=== PATIENT | male | born 1945 | race Caucasian/White ===

== ENCOUNTER 2022-01-07 14:27 | Inpatient (IN) | payer MEDICARE, OTHER, SELFPAY ==
[2022-01-07] VITALS (9 sets, daily range): BP systolic 102–121; BP diastolic 61–75; PULSE 84–95; RESP 14–22; TEMP 37–37.6; O2SAT 93–100; BMI 29.9
--- NOTE | 2022-01-07 14:40 | DI.RAD.S_ITS ---
PROCEDURE: XR CHEST 1V INDICATIONS: chest pain TECHNIQUE: One view of the chest was acquired. COMPARISON: None. FINDINGS: Surgical changes and devices: None. Lungs and pleura: Slight appearance of bibasilar coarsening. Mediastinum: Mediastinal contours appear normal. Heart size is normal. Bones and chest wall: No suspicious bony lesions. Overlying soft tissues appear unremarkable. IMPRESSION: Bibasilar coarsening which may represent atelectasis versus developing airspace disease such as pneumonia. Dictated by: Sarah Quintero M.D. on 01/07/2022 at 15:47 Approved by: Sarah Quintero M.D. on 01/07/2022 at 15:48
--- NOTE | 2022-01-07 15:01 | ED.SYNCOPE ---
HPI - Syncope General Chief Complaint: Syncope Stated Complaint: Fainted- [facility] thinks gallbladder- needs US Time Seen by Provider: 01/07/22 14:44 Source: patient Mode of arrival: Ambulatory History of Present Illness HPI narrative: The patient had syncope about 830 this morning. Was having extreme right upper quadrant abdominal pain. He felt dizzy and apparently passed out. He fell to his right side, there is no head or neck injury. He has passed out before. He was not having chest pain or palpitations. He is diabetic, his glucose is not monitored. He has experienced persistent right upper quadrant abdominal pain for about 4 days now. He has no postprandial pain changes. However, his appetite is poor. He is not vomiting. He has no nausea vomiting. He does not have jaundice. He has a prior history of shoulder surgery, no GI or surgeries. He has no chronic GI issues. His no chest pain, palpitations or dyspnea. He has no focal weakness or numbness. Related Data Previous Rx's Medication Instructions Recorded prednisone 10 mg tablet 10 mg PO SEE INSTRUCTIONS #50 tab 05/05/16 rosuvastatin 20 mg tablet (Crestor) 20 mg PO QDAY #30 tab 05/05/16 cephalexin 500 mg capsule 500 mg PO TID #30 cap NS 01/06/21 Allergies Allergy/AdvReac Type Severity Reaction Status Date / Time egg [EGG] Allergy Intermediate anaphylactic Verified 01/07/22 16:57 shock Review of Systems Constitutional Constitutional: Denies anorexia, Denies body ache(s), Denies chills and Denies fever(s) Eyes Eyes: Denies change in vision and Denies loss of vision ENT Ears, Nose, Mouth, and Throat: Denies vertigo, Denies dizziness, Denies nasal discharge, Denies sinus pain, Denies sinus pressure and Denies sore throat Cardiovascular Cardiovascular: Denies chest pain, Reports syncope, Denies rapid heart rate, Denies pedal edema, Denies leg edema and Denies dyspnea Respiratory Respiratory: Denies cough and Denies dyspnea Gastrointestinal Gastrointestinal: Reports as per HPI, Reports abdominal pain, Reports constipation, Reports early satiety and Reports nausea Genitourinary Genitourinary: Denies dysuria and Denies urinary frequency Musculoskeletal Musculoskeletal: Denies back pain and Denies limited range of motion Integumentary/Breasts Skin/Breast: Denies rash and Denies skin swelling Neurologic Neurologic: Denies confusion, Denies vertigo, Denies dizziness, Reports syncope, Denies loss of vision and Denies memory loss Psychiatric Psychiatric: Denies confusion and Denies memory loss Hematologic/Lymphatic On Anticoagulants: No Patient History Medical History Chronic a-fib Diabetes History of asthma Hyperlipidemia Right inguinal hernia Exam Initial Vital Signs Initial Vital Signs: Vital Signs Temperature 99.1 F 01/07/22 14:37 Pulse Rate 90 01/07/22 14:37 Respiratory Rate 22 01/07/22 14:37 Blood Pressure 121/75 01/07/22 14:37 Pulse Oximetry 100 01/07/22 14:37 Const General: cooperative, healthy appearing and comfortable HENRI Head: normocephalic and atraumatic Mouth: oral mucosae normal and oropharynx normal Throat: posterior oropharynx normal Eyes General: Yes appearance normal, both eyes and all related structures Cornea: corneas normal Pupils: PERRL and pupil size Neck Neck: normal visual inspection and No lymphadenopathy Chest Chest: normal inspection of the chest Resp Effort & Inspection: normal respiratory effort Cardio Rhythm: other (Irregular, irregular rhythm. He is in AFib.) GI Inspection: normal to inspection Other: RUQ tenderness with guarding. No distension. No masses. Normal bowel sounds. Back/Spine/Pelvis Back: normal to inspection and No CVA tenderness Skin General: no rashes or lesions noted Neuro General: patient alert, patient awake, patient oriented x3 and no focal motor deficits Cranial Nerves: CN's II-XI intact bilaterally Speech: speech normal Motor: muscle tone normal throughout Extrem General: normal to inspection, full ROM, no pedal edema and no calf tenderness Psych Appearance: grossly normal Course Course Course Narrative: Patient has subtle elevations LFTs, and an elevated white count. Gallbladder ultrasound is consistent with cholecystitis. Cardiac monitoring and cardiac evaluation done due to syncope episode. He likely is vasovagal syncope associated with his pain. Of note he is anticoagulated for chronic AFib. INR is 3.5. He has hypokalemia, 20 mEq of IV potassium ordered. His case is discussed with the on-call surgeon, Dr. Hebert. I have started him on Zosyn. He will be admitted. Orders Ordered: ED Orders 01/07/22 14:40 XR chest 1V Stat EKG-12 Lead Stat 01/07/22 15:00 Complete Blood Count AUTO DIFF Stat Comprehensive Metabolic Panel Stat Lipase Stat Magnesium Stat Prothrombin Time INR Stat Troponin & CK Cardiac Panel Stat 01/07/22 15:15 US abdomen limited Stat 01/07/22 17:47 COVID19 -Nasal RAPID/Pre-Proc Stat Discontinued Medications POTASSIUM CHLORIDE IN WATER (Potassium Cl 10 Meq/100 Ml Ge[place]) 10 meq in 100 mls @ 100 mls/hr IV Q1H FARIBA Stop: 01/07/22 18:14 Last Infusion: 01/07/22 17:36 Dose: 0 mls/hr Documented by: Admin: 01/07/22 17:29 Dose: 75 mls/hr Documented by: Infusion: 01/07/22 17:29 Dose: 75 mls/hr Documented by: Infusion: 01/07/22 17:11 Dose: 75 mls/hr Documented by: Admin: 01/07/22 16:19 Dose: 100 mls/hr Documented by: CHACHA Piperacillin Sod/Tazobactam (Sod 4.5 gm/ Sodium Chloride) 100 mls @ 200 mls/hr IV NOW ONE Stop: 01/07/22 17:22 Last Infusion: 01/07/22 18:15 Dose: 0 mls/hr Documented by: Admin: 01/07/22 17:35 Dose: 200 mls/hr Documented by: CHACHA Vital Signs Vital signs: Vital Signs - 8 hr 01/07/22 14:37 01/07/22 15:11 01/07/22 15:30 Temperature 99.1 F Pulse Rate 90 91 H 89 Respiratory Rate 22 22 14 Blood Pressure 121/75 107/61 Pulse Oximetry 100 95 96 01/07/22 16:00 01/07/22 16:30 01/07/22 17:00 Temperature Pulse Rate 88 87 89 Respiratory Rate 18 20 19 Blood Pressure 109/62 114/65 112/61 Pulse Oximetry 95 94 93 01/07/22 17:30 Temperature 99.1 F Pulse Rate 84 Respiratory Rate 19 Blood Pressure 109/65 Pulse Oximetry 95 MDM - Syncope Lab Data Result diagrams: 01/07/22 15:00 01/07/22 15:00 Labs: Lab Results 01/07/22 01/07/22 01/07/22 Range/Units 15:00 15:00 15:00 WBC 16.1 H (4.5-11.0) X10^3/uL RBC 4.85 (4.5-5.9) X10^6/uL Hgb 14.6 (13.5-17.5) g/dL Hct 41.9 (41-53) % MCV 86.5 (80-100) fL MCH 30.2 (26-34) PG MCHC 34.9 (30-36) % RDW 14.3 (11.6-14.8) % Plt Count 240 (150-400) X10^3/uL Neut % (Auto) 81.9 H (50-75) % Lymph % (Auto) 7.2 L (25-40) % [place] % (Auto) 10.5 (3-14) % Eos % (Auto) 0.1 L (2-4) % Baso % (Auto) 0.3 (0-2) % Neut # (Auto) 46663 H (5838-3976) /uL Lymph # (Auto) 1200 (6729-6129) /uL [place] # (Auto) 1700 H (0-900) /uL Eos # (Auto) 0 (0-450) /uL Baso # (Auto) 100 (0-100) /uL PT 40.5 H (10.1-12.7) SECONDS INR 3.5 H (0.9-1.3) Sodium 132 L (137-145) mmol/L Potassium 2.9 L (3.4-5.1) mmol/L Chloride 87 L (98-107) mmol/L Carbon Dioxide 36 H (22-32) mmol/L BUN 21 H (9-20) mg/dL Creatinine 1.35 H (0.66-1.25) mg/dL Estimated GFR 54 L (>60) mL/min BUN/Creatinine Ratio 15.6 (6-22) Glucose 135 H (80-110) mg/dL Calcium 10.1 (8.4-10.2) mg/dL Magnesium 1.9 (1.6-2.3) mg/dL Total Bilirubin 1.2 (0.2-1.3) mg/dL AST 69 H (17-59) IU/L ALT 62 H (<50) IU/L Alkaline Phosphatase 104 (38-126) U/L Total Creatine Kinase 218 H (55-170) U/L CK-MB (CK-2) 1.84 (<2.37) ng/mL CK-MB (CK-2) Rel Index 0.8 L (1.5-5.0) % Troponin I < 0.012 (0.01-0.034) ng/mL Total Protein 8.2 (6.3-8.2) g/dL Albumin 4.4 (3.5-5.0) g/dL Globulin 3.8 (1.7-4.1) g/dL Albumin/Globulin Ratio 1.2 (1.0-2.8) Lipase 174 (23-300) U/L Imaging Data Chest x-ray: Radiologist's Impression: PROCEDURE:? XR CHEST 1V ? INDICATIONS:? chest pain ? TECHNIQUE:? One view of the chest was acquired.? ? COMPARISON:? None. ? FINDINGS:? ? Surgical changes and devices:? None.? ? Lungs and pleura:? Slight appearance of bibasilar coarsening. ? Mediastinum:? Mediastinal contours appear normal.? Heart size is normal.? ? Bones and chest wall:? No suspicious bony lesions.? Overlying soft tissues appear unremarkable.? ? IMPRESSION:? Bibasilar coarsening which may represent atelectasis versus developing airspace disease such as pneumonia. US - abdomen: Radiologist's Impression: PROCEDURE:? US ABDOMEN LIMITED ? INDICATIONS:? RUQ PAIN ? TECHNIQUE:? Real-time scanning was performed of the abdominal and retroperitoneal organs, with image documentation.? Color and pulse Doppler interrogation was also performed of the hepatic and splenic vessels, or of the lesion of interest.? ? COMPARISON:? None. ? FINDINGS:? ? Liver:? Liver is mildly enlarged and demonstrates diffuse increased hepatic echotexture.? There is hypoechoic area adjacent to the gallbladder fossa measuring 5.6 x 6.2 x 2.0 cm, most likely secondary to focal fat sparing.? Doppler:? Portal vein is patent and demonstrates hepatopetal flow. Gallbladder:? There are gallstones.? Gallbladder wall is thickened measuring 15 mm.? There is pericholecystic fluid.? There is positive sonographic Aponte sign The ultrasound findings are compatible with acute cholecystitis.? Biliary ducts:? No intrahepatic biliary ductal dilatation.? Extrahepatic bile duct is 5.2 mm in caliber.? Normal biliary caliber is 6-7 mm or less, or 10 mm or less post-cholecystectomy.? Pancreas:? Suboptimally visualized. ? IMPRESSION:? ? 1. Cholelithiasis.? There is gallbladder wall thickening, pericholecystic fluid collection and sonographic Aponte sign, compatible with acute cholecystitis. ? 2.? Diffusely increased hepatic echotexture. This finding is most likely secondary to hepatic fatty infiltration although other hepatocellular disease may have a similar appearance. Recommend clinical correlation. ? 3. Hypoechoic area in the gallbladder fossa is most likely secondary to focal fat sparing. ? 4. Pancreas is suboptimally visualized. ? 5. Normal caliber of common bile duct.? ? ECG Data Attestation: I personally reviewed and interpreted this ECG as follows: (Atrial fib rate 87 beats per minute. QT 380, QTC 457. No acute ST T wave changes.) Critical Care Time Critical Care Time Critical Care Time: Yes Total Critical Care Time: 40 Attestation: Time includes evaluation of patient, review of medical record, review of EKG, lab in radiology data. Clinical situation was discussed with the patient, the admitting surgeon was contacted. Discharge Plan Departure Patient Disposition: Admitted as Observation Clinical Impression: Acute cholecystitis, Chronic a-fib, Hypokalemia, Renal insufficiency Admit Date/Time: 01/07/22 18:13 Admit Provider: Adolph Hebert
[2022-01-07 15:08] LABS: Add Manual Diff / Slide Review NO; Basophils Absolute Auto 100 /uL (0-100); Basophils Percent Auto 0.3 % (0-2); Eosinophils Absolute Auto 0 /uL (0-450); Eosinophils Percent Auto 0.1 % (2-4); Hematocrit 41.9 % (41-53); Hemoglobin 14.6 g/dL (13.5-17.5); Lymphocytes Absolute Auto 1200 /uL (1100-4500); Lymphocytes Percent Auto 7.2 % (25-40); Mean Corpuscular HGB Conc 34.9 % (30-36); Mean Corpuscular Hemoglobin 30.2 PG (26-34); Mean Corpuscular Volume 86.5 fL (80-100); Monocytes Absolute Auto 1700 /uL (0-900); Monocytes Percent Auto 10.5 % (3-14); Neutrophils Absolute Auto 13200 /uL (1500-7000); Neutrophils Percent Auto 81.9 % (50-75); Platelet Count 240 X10^3/uL (150-400); Red Blood Cell Count 4.85 X10^6/uL (4.5-5.9); Red Cell Distribution Width 14.3 % (11.6-14.8); White Blood Cell Count 16.1 X10^3/uL (4.5-11.0)
[2022-01-07 15:15] LABS: INR 3.5 (0.9-1.3); Prothrombin Time 40.5 SECONDS (10.1-12.7)
--- NOTE | 2022-01-07 15:15 | DI.US.S_ITS ---
PROCEDURE: US ABDOMEN LIMITED INDICATIONS: RUQ PAIN TECHNIQUE: Real-time scanning was performed of the abdominal and retroperitoneal organs, with image documentation. Color and pulse Doppler interrogation was also performed of the hepatic and splenic vessels, or of the lesion of interest. COMPARISON: None. FINDINGS: Liver: Liver is mildly enlarged and demonstrates diffuse increased hepatic echotexture. There is hypoechoic area adjacent to the gallbladder fossa measuring 5.6 x 6.2 x 2.0 cm, most likely secondary to focal fat sparing. Doppler: Portal vein is patent and demonstrates hepatopetal flow. Gallbladder: There are gallstones. Gallbladder wall is thickened measuring 15 mm. There is pericholecystic fluid. There is positive sonographic Aponte sign The ultrasound findings are compatible with acute cholecystitis. Biliary ducts: No intrahepatic biliary ductal dilatation. Extrahepatic bile duct is 5.2 mm in caliber. Normal biliary caliber is 6-7 mm or less, or 10 mm or less post-cholecystectomy. Pancreas: Suboptimally visualized. IMPRESSION: 1. Cholelithiasis. There is gallbladder wall thickening, pericholecystic fluid collection and sonographic Aponte sign, compatible with acute cholecystitis. 2. Diffusely increased hepatic echotexture. This finding is most likely secondary to hepatic fatty infiltration although other hepatocellular disease may have a similar appearance. Recommend clinical correlation. 3. Hypoechoic area in the gallbladder fossa is most likely secondary to focal fat sparing. 4. Pancreas is suboptimally visualized. 5. Normal caliber of common bile duct. Dictated by: Ginger Charles M.D. on 01/07/2022 at 16:47 Approved by: Ginger Charles M.D. on 01/07/2022 at 16:51
[2022-01-07 15:20] LABS: Alanine Aminotransferase 62 IU/L (<50); Albumin 4.4 g/dL (3.5-5.0); Albumin Globulin Ratio 1.2 (1.0-2.8); Alkaline Phosphatase 104 U/L (38-126); Aspartate Aminotransferase 69 IU/L (17-59); BUN Creatinine Ratio 15.6 (6-22); Bilirubin Total 1.2 mg/dL (0.2-1.3); Blood Urea Nitrogen 21 mg/dL (9-20); Calcium 10.1 mg/dL (8.4-10.2); Carbon Dioxide 36 mmol/L (22-32); Chloride 87 mmol/L (98-107); Creatine Kinase 218 U/L (55-170); Estimated Glomerular Filt Rate 54 mL/min (>60); Globulin 3.8 g/dL (1.7-4.1); Glucose 135 mg/dL (80-110); HEMOLYSIS < 15 (0-50); Lipase 174 U/L (23-300); Magnesium 1.9 mg/dL (1.6-2.3); Potassium 2.9 mmol/L (3.4-5.1); Sodium 132 mmol/L (137-145); Total Protein 8.2 g/dL (6.3-8.2)
[2022-01-07 15:31] LABS: Troponin I < 0.012 ng/mL (0.01-0.034)
[2022-01-07 15:35] LABS: CKMB % Relative Index 0.8 % (1.5-5.0); Creatine Kinase MB 1.84 ng/mL (<2.37)
[2022-01-07] MEDS: POTASSIUM CHLORIDE IN WATER 10 MEQ/100 ML PIGGYBACK 100 MEQ IV (16:19)
[2022-01-07] MEDS: POTASSIUM CHLORIDE IN WATER 10 MEQ/100 ML PIGGYBACK 75 MEQ IV (17:29)
[2022-01-07] MEDS: PIPERACILLIN/TAZO 4.5 GM in SODIUM CHLORIDE 0.9% 100 ML IV (17:35)
[2022-01-07 18:38] LABS: COVID19 -Nasal RAPID Negative (Negative)
--- NOTE | 2022-01-07 18:53 | PM.CN ---
History of Present Illness Consult details Date Patient Seen: 01/07/22 Time Patient Seen: 18:53 Chief complaint: Fainted- [facility] thinks gallbladder- needs US Narrative: The patient is a 76-year-old man with atrial fibrillation on Coumadin who presented for about 3 days of abdominal pain and syncope today and upon further workup was found to have gallstones and acute cholecystitis. He has never had abdominal pain before. He denies prior abdominal surgery and he denied prior medical problems however upon further investigation he is found to have several medical problems. Meds Home Medications and Allergies Home Medications Medication Instructions Recorded Confirmed Type prednisone 10 mg tablet 10 mg PO SEE INSTRUCTIONS #50 tab 05/05/16 Rx rosuvastatin 20 mg tablet (Crestor) 20 mg PO QDAY #30 tab 05/05/16 Rx cephalexin 500 mg capsule 500 mg PO TID #30 cap NS 01/06/21 01/06/21 Rx Allergies Allergy/AdvReac Type Severity Reaction Status Date / Time egg [EGG] Allergy Intermediate anaphylactic Verified 01/07/22 16:57 shock Exam Vital Signs (past 8 hours): - 01/07/22 14:37 01/07/22 15:11 01/07/22 15:30 Temperature 99.1 F Pulse Rate 90 91 H 89 Respiratory Rate 22 22 14 Blood Pressure 121/75 107/61 Pulse Oximetry 100 95 96 01/07/22 16:00 01/07/22 16:30 01/07/22 17:00 Temperature Pulse Rate 88 87 89 Respiratory Rate 18 20 19 Blood Pressure 109/62 114/65 112/61 Pulse Oximetry 95 94 93 01/07/22 17:30 Temperature 99.1 F Pulse Rate 84 Respiratory Rate 19 Blood Pressure 109/65 Pulse Oximetry 95 Oxygen Delivery Method Room Air Const General: No acute distress Resp Effort & Inspection: normal respiratory effort GI Other: Guarding in the right upper quadrant Objective Labs Result Diagrams: 01/07/22 15:00 01/07/22 15:00 Labs: Laboratory Results - last 24 hr 01/07/22 01/07/22 01/07/22 15:00 15:00 15:00 WBC 16.1 H RBC 4.85 Hgb 14.6 Hct 41.9 MCV 86.5 MCH 30.2 MCHC 34.9 RDW 14.3 Plt Count 240 Neut % (Auto) 81.9 H Lymph % (Auto) 7.2 L [place] % (Auto) 10.5 Eos % (Auto) 0.1 L Baso % (Auto) 0.3 Neut # (Auto) 64709 H Lymph # (Auto) 1200 [place] # (Auto) 1700 H Eos # (Auto) 0 Baso # (Auto) 100 PT 40.5 H INR 3.5 H Sodium 132 L Potassium 2.9 L Chloride 87 L Carbon Dioxide 36 H BUN 21 H Creatinine 1.35 H Estimated GFR 54 L BUN/Creatinine Ratio 15.6 Glucose 135 H Calcium 10.1 Magnesium 1.9 Total Bilirubin 1.2 AST 69 H ALT 62 H Alkaline Phosphatase 104 Total Creatine Kinase 218 H CK-MB (CK-2) 1.84 CK-MB (CK-2) Rel Index 0.8 L Troponin I < 0.012 Total Protein 8.2 Albumin 4.4 Globulin 3.8 Albumin/Globulin Ratio 1.2 Lipase 174 SARS-CoV-2 (PCR) 01/07/22 17:47 WBC RBC Hgb Hct MCV MCH MCHC RDW Plt Count Neut % (Auto) Lymph % (Auto) [place] % (Auto) Eos % (Auto) Baso % (Auto) Neut # (Auto) Lymph # (Auto) [place] # (Auto) Eos # (Auto) Baso # (Auto) PT INR Sodium Potassium Chloride Carbon Dioxide BUN Creatinine Estimated GFR BUN/Creatinine Ratio Glucose Calcium Magnesium Total Bilirubin AST ALT Alkaline Phosphatase Total Creatine Kinase CK-MB (CK-2) CK-MB (CK-2) Rel Index Troponin I Total Protein Albumin Globulin Albumin/Globulin Ratio Lipase SARS-CoV-2 (PCR) Negative [facility] Medical History Chronic a-fib Diabetes History of asthma Hyperlipidemia Right inguinal hernia Social History household members: spouse Tobacco & Substance Use Smoking Status: Never smoker alcohol intake: current Assessment & Plan Assessment and plan (1) Acute cholecystitis: Status: Acute Plan Recommend admission to the hospital service for management of medical problems. His anticoagulation will need to be reversed prior to surgery. Once his INR is close to normal we can proceed with a laparoscopic cholecystectomy with an intraoperative cholangiogram. Informed him that there is a small chance we could require converting to an open cholecystectomy. We reviewed the risks of surgery. Expect him to be in the hospital for at least 3 days and possibly longer. Time Spent With Patient Critical Care time: I spent a total of [] minutes of critical care time on this patient's care today; this time is exclusive of procedural time.
[2022-01-07 19:45] LABS: INR 3.7 (0.9-1.3); Prothrombin Time 42.9 SECONDS (10.1-12.7)
[2022-01-07] MEDS: PHYTONADIONE (VIT K1) 5 MG TABLET 10 MG PO (19:59)
[2022-01-07] MEDS: HYDROMORPHONE 0.5 MG INJ IV (19:59)
[2022-01-07] MEDS: LACTATED RINGERS 1,000 ML 100 ML IV (20:00)
--- NOTE | 2022-01-07 21:21 | P.HP_ITS ---
History of Present Illness History of Present Illness Date Patient Seen: 01/07/22 Time Patient Seen: 21:21 Chief complaint: Fainted- [facility] thinks gallbladder- needs US Patient History Medical History Chronic a-fib Diabetes History of asthma Hyperlipidemia Right inguinal hernia Family & Social History Social History: household members spouse Prior Living Arrangements House Safety & Behavioral: Feels Safe in Current Yes Environment Been Physically Hurt or No Threatened By a Person Tobacco & Substance use: Smoking Status Never smoker alcohol intake current alcohol intake frequency 0-2 drinks per day Substance Use Type does not use Meds Home Medications and Allergies Home Medications Medication Instructions Recorded Confirmed Type allopurinol 300 mg tablet 300 mg PO DAILY 01/07/22 01/07/22 History atenolol 100 mg-chlorthalidone 25 1 tab PO DAILY 01/07/22 01/07/22 History mg tablet fluticasone 100 mcg-salmeterol 50 1 inh INHALATION PRN PRN 01/07/22 01/07/22 History mcg/dose blistr powdr for inhalation metformin 500 mg tablet,extended 1,000 mg PO DAILY 01/07/22 01/07/22 History release 24 hr rosuvastatin 40 mg tablet 40 mg PO DAILY 01/07/22 01/07/22 History semaglutide (Ozempic) 0.5 mg SUBCUT WEEKLY 01/07/22 01/07/22 History venlafaxine 75 mg capsule,extended 75 mg PO DAILY 01/07/22 01/07/22 History release 24 hr warfarin 5 mg tablet 7.5 mg PO 3XW 01/07/22 01/07/22 History warfarin 5 mg tablet 10 mg PO 4XW 01/07/22 01/07/22 History Allergies Allergy/AdvReac Type Severity Reaction Status Date / Time egg [EGG] Allergy Intermediate anaphylactic Verified 01/07/22 16:57 shock Exam Vital Signs (past 8 hours): - 01/07/22 14:37 01/07/22 15:11 01/07/22 15:30 Temperature 99.1 F Pulse Rate 90 91 H 89 Respiratory Rate 22 22 14 Blood Pressure 121/75 107/61 Pulse Oximetry 100 95 96 01/07/22 16:00 01/07/22 16:30 01/07/22 17:00 Temperature Pulse Rate 88 87 89 Respiratory Rate 18 20 19 Blood Pressure 109/62 114/65 112/61 Pulse Oximetry 95 94 93 01/07/22 17:30 01/07/22 18:25 Temperature 99.1 F 99.7 F H Pulse Rate 84 92 H Respiratory Rate 19 17 Blood Pressure 109/65 112/74 Pulse Oximetry 95 95 Oxygen Delivery Method Room Air Oxygen Flow Rate 0 Objective Labs Result Diagrams: 01/07/22 15:00 01/07/22 15:00 Labs: Laboratory Results - last 24 hr 01/07/22 01/07/22 01/07/22 15:00 15:00 15:00 WBC 16.1 H RBC 4.85 Hgb 14.6 Hct 41.9 MCV 86.5 MCH 30.2 MCHC 34.9 RDW 14.3 Plt Count 240 Neut % (Auto) 81.9 H Lymph % (Auto) 7.2 L [place] % (Auto) 10.5 Eos % (Auto) 0.1 L Baso % (Auto) 0.3 Neut # (Auto) 54348 H Lymph # (Auto) 1200 [place] # (Auto) 1700 H Eos # (Auto) 0 Baso # (Auto) 100 PT 40.5 H INR 3.5 H Sodium 132 L Potassium 2.9 L Chloride 87 L Carbon Dioxide 36 H BUN 21 H Creatinine 1.35 H Estimated GFR 54 L BUN/Creatinine Ratio 15.6 Glucose 135 H Calcium 10.1 Magnesium 1.9 Total Bilirubin 1.2 AST 69 H ALT 62 H Alkaline Phosphatase 104 Total Creatine Kinase 218 H CK-MB (CK-2) 1.84 CK-MB (CK-2) Rel Index 0.8 L Troponin I < 0.012 Total Protein 8.2 Albumin 4.4 Globulin 3.8 Albumin/Globulin Ratio 1.2 Lipase 174 SARS-CoV-2 (PCR) 01/07/22 01/07/22 17:47 19:05 WBC RBC Hgb Hct MCV MCH MCHC RDW Plt Count Neut % (Auto) Lymph % (Auto) [place] % (Auto) Eos % (Auto) Baso % (Auto) Neut # (Auto) Lymph # (Auto) [place] # (Auto) Eos # (Auto) Baso # (Auto) PT 42.9 H INR 3.7 H Sodium Potassium Chloride Carbon Dioxide BUN Creatinine Estimated GFR BUN/Creatinine Ratio Glucose Calcium Magnesium Total Bilirubin AST ALT Alkaline Phosphatase Total Creatine Kinase CK-MB (CK-2) CK-MB (CK-2) Rel Index Troponin I Total Protein Albumin Globulin Albumin/Globulin Ratio Lipase SARS-CoV-2 (PCR) Negative Assessment & Plan Time Spent With Patient Critical Care time: I spent a total of [] minutes of critical care time on this patient's care today; this time is exclusive of procedural time. Quality VTE Deep Vein Thrombosis/Pulmonary Embolism Present on Admission: No
[2022-01-07] MEDS: ATORVASTATIN 20 MG TABLET 80 MG PO (21:38)
[2022-01-07 22:04] LABS: INR 3.7 (0.9-1.3); Prothrombin Time 43.9 SECONDS (10.1-12.7)
--- NOTE | 2022-01-07 22:26 | P.CONS_ITS ---
History of Present Illness Consult details Date Patient Seen: 01/07/22 Time Patient Seen: 21:21 Chief complaint: Fainted- [facility] thinks gallbladder- needs US Reason for consult: Anticoagulant reversal and diabetes presurgical lap stephany Requesting provider: Adolph Hebert Narrative: Chalino Zavala is a 76-year-old male with hypertension and a recent diagnosis of diabetes type 2 and who lives on [facility] was in his his usual state of health when this past Wednesday he developed abdominal pain, nausea, fever and chills. His standing at the bedside stated the ship for about 1 hour took his temperature and it was 100.8. When he tried to get out of bed he ?passed out. He [place] a [place] him and said that he needed to be seen in the emergency department in [place]. Denies dysuria, diarrhea or constipation. Patient was seen by General surgery and it was decided that he would undergo laparoscopic cholecystectomy after seeing cholelithiasis on imaging. After surgery had admitted the patient was discovered that the patient was taking warfarin, his INR was supratherapeutic at 3.7 and that he would have to have his anticoagulation reversed. Patient is mildly febrile at 99.7 blood pressure 112/74, heart rate 92, respiratory rate 17, oxygen saturation 95% on room air he weighs 97.6 kg with a BMI of 29.9. He does have an elevated white count of 16.1, left shift of 13,000, INR is 3.7, sodium 132, potassium 2.9 chloride 87 bicarb 36 BUN 21 creatinine 1.35 with a EGFR 54 and a glucose of 135, A1c is pending, AST is elevated at 69 ALT 62 lipase was 174 within normal limits and COVID-19 PCR is negative. Meds Home Medications and Allergies Home Medications Medication Instructions Recorded Confirmed Type allopurinol 300 mg tablet 300 mg PO DAILY 01/07/22 01/07/22 History atenolol 100 mg-chlorthalidone 25 1 tab PO DAILY 01/07/22 01/07/22 History mg tablet fluticasone 100 mcg-salmeterol 50 1 inh INHALATION PRN PRN 01/07/22 01/07/22 History mcg/dose blistr powdr for inhalation metformin 500 mg tablet,extended 1,000 mg PO DAILY 01/07/22 01/07/22 History release 24 hr rosuvastatin 40 mg tablet 40 mg PO DAILY 01/07/22 01/07/22 History semaglutide (Ozempic) 0.5 mg SUBCUT WEEKLY 01/07/22 01/07/22 History venlafaxine 75 mg capsule,extended 75 mg PO DAILY 01/07/22 01/07/22 History release 24 hr warfarin 5 mg tablet 7.5 mg PO 3XW 01/07/22 01/07/22 History warfarin 5 mg tablet 10 mg PO 4XW 01/07/22 01/07/22 History Allergies Allergy/AdvReac Type Severity Reaction Status Date / Time egg [EGG] Allergy Intermediate anaphylactic Verified 01/07/22 16:57 shock Review of Systems Review of Systems ROS: Yes All systems reviewed with the patient and are negative except as otherwise documented Exam Vital Signs (past 8 hours): - 01/07/22 14:37 01/07/22 15:11 01/07/22 15:30 Temperature 99.1 F Pulse Rate 90 91 H 89 Respiratory Rate 22 22 14 Blood Pressure 121/75 107/61 Pulse Oximetry 100 95 96 01/07/22 16:00 01/07/22 16:30 01/07/22 17:00 Temperature Pulse Rate 88 87 89 Respiratory Rate 18 20 19 Blood Pressure 109/62 114/65 112/61 Pulse Oximetry 95 94 93 01/07/22 17:30 01/07/22 18:25 Temperature 99.1 F 99.7 F H Pulse Rate 84 92 H Respiratory Rate 19 17 Blood Pressure 109/65 112/74 Pulse Oximetry 95 95 Oxygen Delivery Method Room Air Oxygen Flow Rate 0 Narrative Exam Narrative: Gen: Alert, oriented, well-developed 76 y.o. male, NAD HEENT: normocephalic, atraumatic, conjunctiva clear, sclera non-icteric, oral mucosa pink and moist Neck: supple, full ROM, no JVD, trachea is midline Resp: Lungs CTA, non-labored breathing CV: RRR, no murmur or rubs Abd: soft, non-tender, normoactive BTs Skin: no lesions or rashes, dry and intact Neuro: Alert and oriented X 4 w/no focal deficits. Speech clear and coherent. Extremities: moves all 4 extremities, is ambulatory, negative Sandy?s sign Psyche: normal mood and affect. Objective Labs Result Diagrams: 01/07/22 15:00 01/07/22 15:00 Labs: Laboratory Results - last 24 hr 01/07/22 01/07/22 01/07/22 15:00 15:00 15:00 WBC 16.1 H RBC 4.85 Hgb 14.6 Hct 41.9 MCV 86.5 MCH 30.2 MCHC 34.9 RDW 14.3 Plt Count 240 Neut % (Auto) 81.9 H Lymph % (Auto) 7.2 L [place] % (Auto) 10.5 Eos % (Auto) 0.1 L Baso % (Auto) 0.3 Neut # (Auto) 81609 H Lymph # (Auto) 1200 [place] # (Auto) 1700 H Eos # (Auto) 0 Baso # (Auto) 100 PT 40.5 H INR 3.5 H Sodium 132 L Potassium 2.9 L Chloride 87 L Carbon Dioxide 36 H BUN 21 H Creatinine 1.35 H Estimated GFR 54 L BUN/Creatinine Ratio 15.6 Glucose 135 H Calcium 10.1 Magnesium 1.9 Total Bilirubin 1.2 AST 69 H ALT 62 H Alkaline Phosphatase 104 Total Creatine Kinase 218 H CK-MB (CK-2) 1.84 CK-MB (CK-2) Rel Index 0.8 L Troponin I < 0.012 Total Protein 8.2 Albumin 4.4 Globulin 3.8 Albumin/Globulin Ratio 1.2 Lipase 174 SARS-CoV-2 (PCR) 01/07/22 01/07/22 01/07/22 17:47 19:05 21:50 WBC RBC Hgb Hct MCV MCH MCHC RDW Plt Count Neut % (Auto) Lymph % (Auto) [place] % (Auto) Eos % (Auto) Baso % (Auto) Neut # (Auto) Lymph # (Auto) [place] # (Auto) Eos # (Auto) Baso # (Auto) PT 42.9 H 43.9 H INR 3.7 H 3.7 H Sodium Potassium Chloride Carbon Dioxide BUN Creatinine Estimated GFR BUN/Creatinine Ratio Glucose Calcium Magnesium Total Bilirubin AST ALT Alkaline Phosphatase Total Creatine Kinase CK-MB (CK-2) CK-MB (CK-2) Rel Index Troponin I Total Protein Albumin Globulin Albumin/Globulin Ratio Lipase SARS-CoV-2 (PCR) Negative [facility] Medical History Chronic a-fib Diabetes History of asthma Hyperlipidemia Right inguinal hernia Family History Mother CVA (cerebral vascular accident) Opioid dependence Father Family history of CABG Bipolar depression Social History household members: spouse Tobacco & Substance Use Smoking Status: Never smoker alcohol intake: current (Wine with dinner) Assessment & Plan Assessment & Plan narrative: Chalino Brush with diabetes and atrial fibrillation anticoagulated with warfarin is admitted for a laparoscopic cholecystectomy. 1. Atrial fibrillation, likely paroxsymal anticoagulated on warfarin * Patient is currently supratherapeutic and we will need to hold his warfarin * Patient states that most of the time he is within therapeutic range with occasional periods where he gets daughter arranged and has to have an adjustment * States that due to diabetic dietary changes including higher vegetable intake that it might be affecting his INR levels * Continue atenolol 100 mg po daily 2. Diabetes type 2, newly diagnosed by his outpatient provider * A1c is currently 6.8 * Will need to hold his Ozempic * Start Lantus 5 units at bedtime and q.6 medium dose correctional scale insulin 3. Depression, chronic * Continue home dose of venlafaxine 75 mg p.o. daily 4. Acute cholecystitis with cholelithiasis, present on admission * Currently anticoagulated on warfarin which is currently being held to a goal INR of 1.2-1.5 in preparation for surgery. VTE Prophylaxis: X Bilateral SCDs Patient is currently anticoagulated on on warfarin, C 4. Above FEN: IV fluids: LR at 75 ml/hour, diet: clears , labs: CBC, C/BMP, liver enzymes, Mag, PT/INR Dispo: probable discharge to home Code status: Full code as discussed with the patient who identifies his , Mary as his surrogate and POA. [X] I have utilized all available immediate resources to obtain, update, or review of the patient's current medications COVID-19 COVID-19 status: Negative Result date/Date tested (Pos, Neg/Pending): 01/07/22
[2022-01-07 22:43] LABS: Hemoglobin A1C% w Est Avg Glu 6.8 % (4.0-6.0)
[2022-01-08] VITALS: BP 103/68; PULSE 88; RESP 18; TEMP 36.6; O2SAT 93
[2022-01-08 04:14] VITALS: BP 96/59; PULSE 87; RESP 18; TEMP 36.5; O2SAT 95
[2022-01-08 04:20] LABS: Add Manual Diff / Slide Review NO; Basophils Absolute Auto 0 /uL (0-100); Basophils Percent Auto 0.3 % (0-2); Eosinophils Absolute Auto 0 /uL (0-450); Eosinophils Percent Auto 0.1 % (2-4); Hemoglobin 13.8 g/dL (13.5-17.5); Lymphocytes Absolute Auto 800 /uL (1100-4500); Lymphocytes Percent Auto 5.4 % (25-40); Mean Corpuscular HGB Conc 34.4 % (30-36); Mean Corpuscular Hemoglobin 29.8 PG (26-34); Mean Corpuscular Volume 86.5 fL (80-100); Monocytes Absolute Auto 1500 /uL (0-900); Monocytes Percent Auto 10.4 % (3-14); Neutrophils Absolute Auto 11800 /uL (1500-7000); Neutrophils Percent Auto 83.8 % (50-75); Platelet Count 240 X10^3/uL (150-400); Red Blood Cell Count 4.62 X10^6/uL (4.5-5.9); Red Cell Distribution Width 13.8 % (11.6-14.8); White Blood Cell Count 14.1 X10^3/uL (4.5-11.0)
[2022-01-08 04:21] LABS: INR 3.2 (0.9-1.3); Prothrombin Time 37.2 SECONDS (10.1-12.7)
[2022-01-08 04:29] LABS: Alanine Aminotransferase 125 IU/L (<50); Albumin Globulin Ratio 1.1 (1.0-2.8); Alkaline Phosphatase 149 U/L (38-126); Aspartate Aminotransferase 128 IU/L (17-59); BUN Creatinine Ratio 16.4 (6-22); Bilirubin Total 1.6 mg/dL (0.2-1.3); Blood Urea Nitrogen 19 mg/dL (9-20); Calcium 9.5 mg/dL (8.4-10.2); Carbon Dioxide 33 mmol/L (22-32); Chloride 91 mmol/L (98-107); Estimated Glomerular Filt Rate > 60 mL/min (>60); Globulin 3.7 g/dL (1.7-4.1); Glucose 148 mg/dL (80-110); HEMOLYSIS < 15 (0-50); Potassium 2.8 mmol/L (3.4-5.1); Sodium 134 mmol/L (137-145); Total Protein 7.7 g/dL (6.3-8.2)
[2022-01-08] MEDS: LACTATED RINGERS 1,000 ML 100 ML IV (06:15)
[2022-01-08] MEDS: HYDROMORPHONE 0.5 MG INJ IV (08:00)
[2022-01-08 08:56] VITALS: BP 106/64; PULSE 84; RESP 16; TEMP 37.6; O2SAT 93
--- NOTE | 2022-01-08 10:21 | DI.MRI.S_ITS ---
PROCEDURE: MR ABDOMEN WO CON INDICATIONS: Rule out choledocholithiasis TECHNIQUE: Coronal HASTE through the abdomen, axial 2-D FLASH in- and [id number]-mr-[id number], and breath-hold T2 FSE with fat saturation through the biliary system and pancreas. Oblique coronal and axial thin-slice HASTE, radial thick-slab HASTE centered on the extrahepatic bile ducts. COMPARISON: [facility], , US ABDOMEN LIMITED, 01/07/2022, 16:38. FINDINGS: Image quality: Fair. Motion artifact. Suboptimal MRCP sequences due to motion. Pancreas and biliary system: Gallbladder is distended with wall thickening. There are several small gallstones. There is trace pericholecystic fluid. Findings most consistent with acute cholecystitis. The distal CBD is not dilated. The proximal CBD and CHD are not well seen. No intrahepatic biliary ductal dilatation. The pancreatic duct is not dilated. Other solid organs: Liver is normal in size. Subcentimeter T2 hyperintense cyst in the left lobe of the liver. Hepatic steatosis. Spleen is mildly enlarged measuring 13.4 cm. No adrenal nodules. Both kidneys are normal in size, without hydronephrosis. Small T2 hyperintense renal cysts. Nodes and vessels: No retroperitoneal or mesenteric adenopathy by size criteria. Aorta and inferior vena cava are normal in size. Bowel and peritoneum: Unenhanced bowel loops are normal in caliber. No free fluid. Lung bases: No basal pleural effusions. Heart size is normal. Bones and soft tissues: No ventral hernias. Bone marrow is of normal overall signal. IMPRESSION: Exam is limited by motion artifact. 1. Distended gallbladder with wall thickening and pericholecystic fluid and gallstones. Findings consistent with acute cholecystitis. 2. No intrahepatic biliary ductal dilatation. The distal CBD is not dilated. Other portions of the bile ducts are not well seen. 3. Hepatic steatosis. Comment: Findings were discussed with DAJUAN Mora at the time of dictation. Dictated by: Yeyo Bravo M.D. on 01/08/2022 at 15:58 Approved by: Yeyo Bravo M.D. on 01/08/2022 at 16:16
--- NOTE | 2022-01-08 11:42 | CM.DANOTE ---
DCP: Case received, EMR reviewed and met with patient. Spouse, Mary, was also at bedside. Introduced self and role. Was able to obtain information regarding patient's baseline activity status prior to hospitalization. DCP assessment completed with information currently available. Patient is a 76 year old male who admitted yesterday afternoon to the care of the hospitalist team. PCP: Dr. Caceres. Payer: confirmed: Medicare/[employer]. Patient came to the hospital via private vehicle secondary to having abdominal pain, nausea, fever and chills. According to notes, patient had a syncopal episode at home. Notes also indicate that their friend next door, who is a retired PCP, had come over to assess patient. Patient was diagnosed with acute cholecystitis. He is scheduled for laparoscopic cholecystectomy this afternoon. Met with patient in his room, spouse was also in the room. Confirmed that patient resides in [facility], with his spouse, Mary. Patient is independent at his baseline, and drives. P: DCP to continue to follow, surgery is planned for this afternoon. Plan is home when he is deemed medically stable. Madie Friedman RN/Back Pad Inspector Discharge Planning/Care Management CM Discharge Assessment Start: 01/08/22 11:41 Freq: Status: Active Protocol: Document 01/08/22 11:41 (Rec: 01/08/22 11:42 [id number]) Discharge Planning Assessment Assigned [employer] Lead Madie Friedman RN/Back Pad Inspector Advance Directives? No History Provided By Patient,Medical Record Prior Living Arrangements House Household Members spouse Type of transporation used prior to Drives own vehicle admit Independent with ADL's Yes Is patient alert and oriented? Yes Caregiver for Another No Barriers to Discharge No Discharge Plan Home Transportation Arrangement Spouse Referrals Initiated None needed Whiteboard Updated in Patient Room with Yes name and ext. # of [employer] Food Crew Lead Review Status In Process Next Review Type Continued Stay Review
[2022-01-08] MEDS: POTASSIUM CHLORIDE IN WATER 10 MEQ/100 ML PIGGYBACK 100 MEQ IV ×6 (11:44→19:29)
--- NOTE | 2022-01-08 13:06 | P.PN_ITS ---
Subjective Subjective Date Patient Seen: 01/08/22 Time Patient Seen: 13:06 Interval history: INR remains elevated today after vitamin K administration yesterday. Also bilirubin and liver enzymes have trended upwards. Exam Vital Signs (past 8 hours): - 01/08/22 08:56 Temperature 99.6 F Pulse Rate 84 Respiratory Rate 16 Blood Pressure 106/64 Pulse Oximetry 93 Oxygen Delivery Method Room Air Oxygen Flow Rate 0 Const General: No acute distress Resp Effort & Inspection: normal respiratory effort Objective Labs Result Diagrams: 01/08/22 04:00 01/08/22 04:00 Labs: Laboratory Results - last 24 hr 01/07/22 01/07/22 01/07/22 15:00 15:00 15:00 WBC 16.1 H RBC 4.85 Hgb 14.6 Hct 41.9 MCV 86.5 MCH 30.2 MCHC 34.9 RDW 14.3 Plt Count 240 Neut % (Auto) 81.9 H Lymph % (Auto) 7.2 L [place] % (Auto) 10.5 Eos % (Auto) 0.1 L Baso % (Auto) 0.3 Neut # (Auto) 33221 H Lymph # (Auto) 1200 [place] # (Auto) 1700 H Eos # (Auto) 0 Baso # (Auto) 100 PT 40.5 H INR 3.5 H Sodium 132 L Potassium 2.9 L Chloride 87 L Carbon Dioxide 36 H BUN 21 H Creatinine 1.35 H Estimated GFR 54 L BUN/Creatinine Ratio 15.6 Glucose 135 H Hemoglobin A1c Calcium 10.1 Magnesium 1.9 Total Bilirubin 1.2 AST 69 H ALT 62 H Alkaline Phosphatase 104 Total Creatine Kinase 218 H CK-MB (CK-2) 1.84 CK-MB (CK-2) Rel Index 0.8 L Troponin I < 0.012 Total Protein 8.2 Albumin 4.4 Globulin 3.8 Albumin/Globulin Ratio 1.2 Lipase 174 SARS-CoV-2 (PCR) 01/07/22 01/07/22 01/07/22 15:00 17:47 19:05 WBC RBC Hgb Hct MCV MCH MCHC RDW Plt Count Neut % (Auto) Lymph % (Auto) [place] % (Auto) Eos % (Auto) Baso % (Auto) Neut # (Auto) Lymph # (Auto) [place] # (Auto) Eos # (Auto) Baso # (Auto) PT 42.9 H INR 3.7 H Sodium Potassium Chloride Carbon Dioxide BUN Creatinine Estimated GFR BUN/Creatinine Ratio Glucose Hemoglobin A1c 6.8 H Calcium Magnesium Total Bilirubin AST ALT Alkaline Phosphatase Total Creatine Kinase CK-MB (CK-2) CK-MB (CK-2) Rel Index Troponin I Total Protein Albumin Globulin Albumin/Globulin Ratio Lipase SARS-CoV-2 (PCR) Negative 01/07/22 01/08/22 01/08/22 21:50 04:00 04:00 WBC 14.1 H RBC 4.62 Hgb 13.8 Hct 40.0 L MCV 86.5 MCH 29.8 MCHC 34.4 RDW 13.8 Plt Count 240 Neut % (Auto) 83.8 H Lymph % (Auto) 5.4 L [place] % (Auto) 10.4 Eos % (Auto) 0.1 L Baso % (Auto) 0.3 Neut # (Auto) 37101 H Lymph # (Auto) 800 L [place] # (Auto) 1500 H Eos # (Auto) 0 Baso # (Auto) 0 PT 43.9 H 37.2 H D INR 3.7 H 3.2 H Sodium Potassium Chloride Carbon Dioxide BUN Creatinine Estimated GFR BUN/Creatinine Ratio Glucose Hemoglobin A1c Calcium Magnesium Total Bilirubin AST ALT Alkaline Phosphatase Total Creatine Kinase CK-MB (CK-2) CK-MB (CK-2) Rel Index Troponin I Total Protein Albumin Globulin Albumin/Globulin Ratio Lipase SARS-CoV-2 (PCR) 01/08/22 04:00 WBC RBC Hgb Hct MCV MCH MCHC RDW Plt Count Neut % (Auto) Lymph % (Auto) [place] % (Auto) Eos % (Auto) Baso % (Auto) Neut # (Auto) Lymph # (Auto) [place] # (Auto) Eos # (Auto) Baso # (Auto) PT INR Sodium 134 L Potassium 2.8 L Chloride 91 L Carbon Dioxide 33 H BUN 19 Creatinine 1.16 Estimated GFR > 60 BUN/Creatinine Ratio 16.4 Glucose 148 H Hemoglobin A1c Calcium 9.5 Magnesium Total Bilirubin 1.6 H AST 128 H ALT 125 H Alkaline Phosphatase 149 H Total Creatine Kinase CK-MB (CK-2) CK-MB (CK-2) Rel Index Troponin I Total Protein 7.7 Albumin 4.0 Globulin 3.7 Albumin/Globulin Ratio 1.1 Lipase SARS-CoV-2 (PCR) [facility] Medical History Chronic a-fib Diabetes History of asthma Hyperlipidemia Right inguinal hernia Family History Mother CVA (cerebral vascular accident) Opioid dependence Father Family history of CABG Bipolar depression Social History household members: spouse Smoking Status: Never smoker alcohol intake: current (Wine with dinner) Assessment & Plan Assessment and plan (1) Acute cholecystitis: Status: Acute Plan Will perform an MRCP to rule out a common duct stone. If he has a common bile duct stone we would need to initiate transfer for ERCP. If he does not have a common bile duct stone we will postpone surgery until tomorrow due to persistently elevated INR. Time Spent With Patient Critical Care time: I spent a total of [] minutes of critical care time on this patient's care today; this time is exclusive of procedural time. Quality VTE Deep Vein Thrombosis/Pulmonary Embolism Present on Admission: No
[2022-01-08] MEDS: LORazepam 2 MG/ML INJ 1 MG IV (15:16)
[2022-01-08 15:56] VITALS: BP 123/70; PULSE 98; RESP 18; TEMP 37.5; O2SAT 93
[2022-01-08] MEDS: INSULIN LISPRO 100 UNIT/ML 3ML VIAL SUBCUT (17:26)
--- NOTE | 2022-01-08 17:35 | PM.PN.1 ---
Subjective Subjective Date Patient Seen: 01/08/22 Interval history: BRIEF HPI PATIENT HOSPITAL WITH ACUTE CHOLECYSTITIS CONSULTED FOR MEDICAL MANAGEMENT TODAY NO SIGNIFICANT COMPLAINTS TODAY NO FEVER OR CHIOLLS NO NAUSEA OR VOMITING Exam Vital Signs (past 8 hours): - 01/08/22 15:56 Temperature 99.5 F Pulse Rate 98 H Respiratory Rate 18 Blood Pressure 123/70 Pulse Oximetry 93 Oxygen Delivery Method Room Air Oxygen Flow Rate 0 Narrative Exam Narrative: NO ACUTE DISTRESS. PATIENT IS ALERT ORIENTED X3. VITAL SIGNS STABLE HEAD ATRAUMATIC NORMOCEPHALIC NECK : SUPPLE WITHOUT ADENOPATHY NO CAROTID BRUITS EYE: EOMI, PERRLA, NORMAL CONJUNCTIVA; NO JAUNDICE CHEST: REGULAR RATE. NO RUBS. PMI IS NON DISPLACED. NO MURMURS; NORMAL S1-S2 PULMONARY: DECREASED BS OVER THE BASES. MILD BIBASILAR CRACKLES NOTED; NO INCREASED DULLNESS TO PERCUSSION ABDOMEN: SOFT. NONTENDER. NONDISTENDED. BOWEL SOUNDS ARE PRESENT IN ALL 4 QUADRANTS. NO MASS. EXTREMITIES: NO EDEMA.. NO CYANOSIS CLUBBING NOTED. NEURO: CRANIAL NERVES 2-12 GROSSLY INTACT. NO FOCAL NEUROLOGICAL DEFICIT NOTED. MSK: NORMAL RANGE OF MOTION FOR AGE. NO JOINT EFFUSION. SKIN: NORMAL FOR ETHNICITY; NO ECCHYMOSIS. NO LESION. GOOD TURGOR.; NO RASHES : NORMAL EXTERNAL GENITALIA. PSYCH : APPROPRIATE MOOD AND AFFECT. ALERT AWAKE ORIENTED X3 Objective Labs Result Diagrams: 01/08/22 04:00 01/08/22 04:00 Labs: Laboratory Results - last 24 hr 01/07/22 01/07/22 01/07/22 15:00 17:47 19:05 WBC RBC Hgb Hct MCV MCH MCHC RDW Plt Count Neut % (Auto) Lymph % (Auto) [place] % (Auto) Eos % (Auto) Baso % (Auto) Neut # (Auto) Lymph # (Auto) [place] # (Auto) Eos # (Auto) Baso # (Auto) PT 42.9 H INR 3.7 H Sodium Potassium Chloride Carbon Dioxide BUN Creatinine Estimated GFR BUN/Creatinine Ratio Glucose Hemoglobin A1c 6.8 H Calcium Total Bilirubin AST ALT Alkaline Phosphatase Total Protein Albumin Globulin Albumin/Globulin Ratio SARS-CoV-2 (PCR) Negative 01/07/22 01/08/22 01/08/22 21:50 04:00 04:00 WBC 14.1 H RBC 4.62 Hgb 13.8 Hct 40.0 L MCV 86.5 MCH 29.8 MCHC 34.4 RDW 13.8 Plt Count 240 Neut % (Auto) 83.8 H Lymph % (Auto) 5.4 L [place] % (Auto) 10.4 Eos % (Auto) 0.1 L Baso % (Auto) 0.3 Neut # (Auto) 45436 H Lymph # (Auto) 800 L [place] # (Auto) 1500 H Eos # (Auto) 0 Baso # (Auto) 0 PT 43.9 H 37.2 H D INR 3.7 H 3.2 H Sodium Potassium Chloride Carbon Dioxide BUN Creatinine Estimated GFR BUN/Creatinine Ratio Glucose Hemoglobin A1c Calcium Total Bilirubin AST ALT Alkaline Phosphatase Total Protein Albumin Globulin Albumin/Globulin Ratio SARS-CoV-2 (PCR) 01/08/22 04:00 WBC RBC Hgb Hct MCV MCH MCHC RDW Plt Count Neut % (Auto) Lymph % (Auto) [place] % (Auto) Eos % (Auto) Baso % (Auto) Neut # (Auto) Lymph # (Auto) [place] # (Auto) Eos # (Auto) Baso # (Auto) PT INR Sodium 134 L Potassium 2.8 L Chloride 91 L Carbon Dioxide 33 H BUN 19 Creatinine 1.16 Estimated GFR > 60 BUN/Creatinine Ratio 16.4 Glucose 148 H Hemoglobin A1c Calcium 9.5 Total Bilirubin 1.6 H AST 128 H ALT 125 H Alkaline Phosphatase 149 H Total Protein 7.7 Albumin 4.0 Globulin 3.7 Albumin/Globulin Ratio 1.1 SARS-CoV-2 (PCR) [facility] Medical History Chronic a-fib Diabetes History of asthma Hyperlipidemia Right inguinal hernia Family History Mother CVA (cerebral vascular accident) Opioid dependence Father Family history of CABG Bipolar depression Social History household members: spouse Smoking Status: Never smoker alcohol intake: current (Wine with dinner) Assessment & Plan Assessment & Plan narrative: IMPRESSION ACUTE CHOLECYSTITIS. SURGERY IS ON BOARD COUMADIN COAGULOPATHY. VITAMIN K GIVEN HYPERLIPIDEMIA PER HISTORY DIABETES TYPE 2 PER HISTORY PERSISTENT ATRIAL FIBRILLATION PER HISTORY PLAN INR REMAINED ABOVE 2 VITAMIN K TO BE GIVEN ONCE TODAY WILL CHANGE IV TI TO NS WITH KCL WILL ALSO ORDER ORAL REPLACEMENT REPEAT LABS IN AM TO FOLLOW MRCP WITHOUT EVIDENCE OF CHOLEDOCOLITHIASIS POSSIBLE LAP TAYLA IN AM NPO AFTER MN WILL START ON ABX WELL ADDITIONAL MANAGEMENT PER CLINICAL COURSE Time Spent With Patient Critical Care time: I spent a total of [] minutes of critical care time on this patient's care today; this time is exclusive of procedural time. Quality VTE Deep Vein Thrombosis/Pulmonary Embolism Present on Admission: No
--- NOTE | 2022-01-08 18:17 | PM.PN.1 ---
Subjective Subjective Date Patient Seen: 01/08/22 Time Patient Seen: 18:17 Interval history: INR remains elevated above 3 today. He he has received vitamin K. bilirubin and other liver enzymes have trended upwards and so an MRCP was performed but no common duct stone has been visualized. Exam Vital Signs (past 8 hours): - 01/08/22 15:56 Temperature 99.5 F Pulse Rate 98 H Respiratory Rate 18 Blood Pressure 123/70 Pulse Oximetry 93 Oxygen Delivery Method Room Air Oxygen Flow Rate 0 Const General: No acute distress Resp Effort & Inspection: normal respiratory effort Objective Labs Result Diagrams: 01/08/22 04:00 01/08/22 04:00 Labs: Laboratory Results - last 24 hr 01/07/22 01/07/22 01/07/22 15:00 17:47 19:05 WBC RBC Hgb Hct MCV MCH MCHC RDW Plt Count Neut % (Auto) Lymph % (Auto) [place] % (Auto) Eos % (Auto) Baso % (Auto) Neut # (Auto) Lymph # (Auto) [place] # (Auto) Eos # (Auto) Baso # (Auto) PT 42.9 H INR 3.7 H Sodium Potassium Chloride Carbon Dioxide BUN Creatinine Estimated GFR BUN/Creatinine Ratio Glucose Hemoglobin A1c 6.8 H Calcium Total Bilirubin AST ALT Alkaline Phosphatase Total Protein Albumin Globulin Albumin/Globulin Ratio SARS-CoV-2 (PCR) Negative 01/07/22 01/08/22 01/08/22 21:50 04:00 04:00 WBC 14.1 H RBC 4.62 Hgb 13.8 Hct 40.0 L MCV 86.5 MCH 29.8 MCHC 34.4 RDW 13.8 Plt Count 240 Neut % (Auto) 83.8 H Lymph % (Auto) 5.4 L [place] % (Auto) 10.4 Eos % (Auto) 0.1 L Baso % (Auto) 0.3 Neut # (Auto) 77237 H Lymph # (Auto) 800 L [place] # (Auto) 1500 H Eos # (Auto) 0 Baso # (Auto) 0 PT 43.9 H 37.2 H D INR 3.7 H 3.2 H Sodium Potassium Chloride Carbon Dioxide BUN Creatinine Estimated GFR BUN/Creatinine Ratio Glucose Hemoglobin A1c Calcium Total Bilirubin AST ALT Alkaline Phosphatase Total Protein Albumin Globulin Albumin/Globulin Ratio SARS-CoV-2 (PCR) 01/08/22 04:00 WBC RBC Hgb Hct MCV MCH MCHC RDW Plt Count Neut % (Auto) Lymph % (Auto) [place] % (Auto) Eos % (Auto) Baso % (Auto) Neut # (Auto) Lymph # (Auto) [place] # (Auto) Eos # (Auto) Baso # (Auto) PT INR Sodium 134 L Potassium 2.8 L Chloride 91 L Carbon Dioxide 33 H BUN 19 Creatinine 1.16 Estimated GFR > 60 BUN/Creatinine Ratio 16.4 Glucose 148 H Hemoglobin A1c Calcium 9.5 Total Bilirubin 1.6 H AST 128 H ALT 125 H Alkaline Phosphatase 149 H Total Protein 7.7 Albumin 4.0 Globulin 3.7 Albumin/Globulin Ratio 1.1 SARS-CoV-2 (PCR) PF[facility] Medical History Chronic a-fib Diabetes History of asthma Hyperlipidemia Right inguinal hernia Family History Mother CVA (cerebral vascular accident) Opioid dependence Father Family history of CABG Bipolar depression Social History household members: spouse Smoking Status: Never smoker alcohol intake: current (Wine with dinner) Assessment & Plan Assessment and plan (1) Acute cholecystitis: Status: Acute Plan Plan to recheck INR tomorrow morning and if less than 2 we will proceed with a laparoscopic cholecystectomy with intraoperative cholangiogram tomorrow. Time Spent With Patient Critical Care time: I spent a total of [] minutes of critical care time on this patient's care today; this time is exclusive of procedural time. Quality VTE Deep Vein Thrombosis/Pulmonary Embolism Present on Admission: No
[2022-01-08] MEDS: POTASSIUM CHLORIDE 20 MEQ TAB 40 MEQ PO (19:29)
--- NOTE | 2022-01-08 19:31 | PC.NURSE ---
Provider added additional Oral potassium 40 and IV 20 of K to be infused at midnight. provider aware that patient is already getting 6 bags of 10MeqK IV. I also talked to the pharmacist and verified this.
[2022-01-08 20:12] LABS: HEMOLYSIS < 15 (0-50); Potassium 3.7 mmol/L (3.4-5.1)
[2022-01-08 21:00] VITALS: BP 122/65; PULSE 99; RESP 18; TEMP 36.6; O2SAT 98
[2022-01-08] MEDS: PHYTONADIONE (VIT K1) 5 MG in SODIUM CHLORIDE 0.9% 100 ML 201 MG IV (21:11)
[2022-01-08] MEDS: ATORVASTATIN 20 MG TABLET 80 MG PO (21:13)
[2022-01-08] MEDS: INSULIN GLARGINE 100 UNIT/ML 3ML PEN SUBCUT (21:28)
[2022-01-08 21:47] LABS: INR 1.8 (0.9-1.3)
[2022-01-08] MEDS: TRAZODONE 50 MG TABLET PO (22:54)
[2022-01-08 22:55] LABS: Magnesium 2.1 mg/dL (1.6-2.3)
[2022-01-09] VITALS (18 sets, daily range): BP systolic 95–142; BP diastolic 39–81; PULSE 85–105; RESP 11–20; TEMP 36.3–37.3; O2SAT 91–98; BMI 29.9
--- NOTE | 2022-01-09 | PATH_ITS ---
[facility] Accession Number: [id number] No. of containers..01 Tissue . 01 Material submitted: . gallbladder - GALLBLADDER WITH CONTENTS . 01 Diagnosis: Gallbladder With Contents, Cholecystectomy: Acute, chronic, and partially gangrenous cholecystitis and cholelithiasis. Benign cystic duct lymph node (0/1) with adherent, inflamed granulation tissue. [facility] 01/13/2022 1324 Local . 01 Electronically signed: . Heidi Tran MD, Pathologist NPI- [id number] . 01 Gross description: . Received in a container of formalin, labeled gallbladder and contents, is an 11.0 x 6.0 x 3.0 cm previously opened gallbladder and cystic duct. The serosa is dark red and diffusely hemorrhagic with multiple attached hemorrhagic, fibrous adhesions. Attached to the cystic duct is a 1.5 cm, maradiaga, rubbery lymph node. It has some unremarkable cut surfaces. The cystic duct margin has been previously opened longitudinally, and the gallbladder is opened longitudinally. The mucosa is variegated, dusky, and has a diffuse necrotic appearance. There are diffusely hemorrhagic fibrofatty cut surfaces with the wall thickness ranging in size from 0.2 cm to 1.8 cm. No masses or lesions are identified. The bile-stained formalin in the container is filtered, and a 0.8 cm, brown, granular calculus is identified. Senior Consulting Manager sections are submitted as follows: . A1: Cystic duct lymph node. A2: En face portion of cystic duct margin. A3: Random gallbladder. ([id number]) /[facility] 01/10/2022 1412 Local . 01 Pathologist provided ICD-10: K81.2, K80.60 . 01 CPT . 270444 Specimen Comment: A courtesy copy of this report has been sent to [phone] Performed at: 01 [facility] [address] [facility], [place], [place] [id number] MD Sidney Saleem MD Phone: [phone]
[2022-01-09] MEDS: KCL 20 MEQ IN NS 1,000 ML 70 MEQ IV ×2 (00:39→13:53)
[2022-01-09 05:31] LABS: Add Manual Diff / Slide Review NO; Basophils Absolute Auto 0 /uL (0-100); Basophils Percent Auto 0.2 % (0-2); Eosinophils Absolute Auto 0 /uL (0-450); Eosinophils Percent Auto 0.2 % (2-4); Hematocrit 39.2 % (41-53); Hemoglobin 13.5 g/dL (13.5-17.5); Lymphocytes Absolute Auto 800 /uL (1100-4500); Lymphocytes Percent Auto 4.9 % (25-40); Mean Corpuscular HGB Conc 34.4 % (30-36); Mean Corpuscular Hemoglobin 29.8 PG (26-34); Mean Corpuscular Volume 86.4 fL (80-100); Monocytes Absolute Auto 1700 /uL (0-900); Neutrophils Absolute Auto 13100 /uL (1500-7000); Neutrophils Percent Auto 83.7 % (50-75); Platelet Count 253 X10^3/uL (150-400); Red Blood Cell Count 4.54 X10^6/uL (4.5-5.9); Red Cell Distribution Width 13.9 % (11.6-14.8); White Blood Cell Count 15.6 X10^3/uL (4.5-11.0)
[2022-01-09 05:32] LABS: INR 1.5 (0.9-1.3); Prothrombin Time 16.7 SECONDS (10.1-12.7)
[2022-01-09 05:37] LABS: BUN Creatinine Ratio 13.7 (6-22); Blood Urea Nitrogen 17 mg/dL (9-20); Calcium 9.5 mg/dL (8.4-10.2); Carbon Dioxide 32 mmol/L (22-32); Chloride 93 mmol/L (98-107); Estimated Glomerular Filt Rate > 60 mL/min (>60); Glucose 137 mg/dL (80-110); HEMOLYSIS < 15 (0-50); Potassium 3.2 mmol/L (3.4-5.1); Sodium 134 mmol/L (137-145)
[2022-01-09] MEDS: atenoloL 50 MG TABLET 100 MG PO (09:35)
[2022-01-09] MEDS: HYDROMORPHONE 0.5 MG INJ IV (09:35)
[2022-01-09] MEDS: POTASSIUM CHLORIDE 20 MEQ TAB 40 MEQ PO (12:35)
[2022-01-09] MEDS: LACTATED RINGERS 1,000 ML 75 ML IV ×2 (15:04→18:41)
--- NOTE | 2022-01-09 15:20 | PM.PREOP ---
Pre-operative Note COVID-19 COVID-19 status: Negative Result date/Date tested (Pos, Neg/Pending): 01/07/22 Interval Note History & Physical reviewed/Exam performed by Physician: Yes Changes to H&P: No H&P completed within 30 days and has changed as indicated here:: MRCP yesterday showed no common duct stones. INR is down to 1.5 today ASA Class (for procedural sedation): III
[2022-01-09] MEDS: CEFAZOLIN 2 GM/20 ML SYRINGE IV (16:50)
[2022-01-09] MEDS: BUPIVACAINE 0.5% (PF) VIAL 30 ML INJ (17:00)
[2022-01-09] MEDS: LIDOCAINE 1% W/EPI 20 ML INJ (17:00)
--- NOTE | 2022-01-09 17:09 | SUR.OPER ---
Supine on padded OR bed, head on pillow, safety belt at thigh, left arm padded and tucked at side. Right arm secured on padded arm board <90 degrees abduction. Legs uncrossed. Padded footboard in place. Tape over blanket to secure lower legs.
[2022-01-09] MEDS: IOPAMIDOL 50 ML VIAL INJ (17:19)
--- NOTE | 2022-01-09 19:25 | P.OP_ITS ---
Operative Date/Time/Diagnoses Date of procedure: 01/09/22 Time of procedure: 19:26 Pre-op diagnosis: Acute cholecystitis Post-op diagnosis: other (Gallbladder empyema) Procedure & Clinicians Procedure: Laparoscopic cholecystectomy Same procedure as scheduled: Yes Surgeon: Adolph Hebert Operative Notes Procedure in detail: The patient was given preoperative antibiotic. The patient was brought to the operating room, placed on the table in the supine position. General endotracheal anesthesia was induced. The abdomen was prepped and draped. A time-out was performed. We made a 1 cm supraumbilical incision. We dissected down to the anterior sheath. We scored the fascia transversely with cautery 1 cm. We grasped the fascia with a Chanel clamp to elevate the abdominal wall and pierced the peritoneum with a Peon clamp. The Laura port was placed and the abdomen was insufflated to 15 mmHg. A 5 mm 30 degree laparoscopic was inserted. There was no evidence of any injury from the entry. Next, we placed 5 mm ports in the subxiphoid position and right upper quadrant at the midclavicular line and anterior axillary line. Patient was then positioned in reverse Trendelenburg and the table was tilted to the left. There were dense adhesions of the omentum over the gallbladder which were bluntly taken down with graspers. Gallbladder was tense and distended and was decompressed with a needle. Roughly 50 mL of foul-smelling purulent bile was aspirated. The gallbladder was grasped at the dome and retracted cephalad. Gallbladder tore easily when being retracted as it was largely necrotic. Blunt dissection eventually enabled visualization of cystic duct and artery. The artery was clipped twice proximally once distally with hemoclips but the diminutive cystic duct tore from the infundibulum. There was no evidence of bile leaking from the sara. The gallbladder was then dissected off the liver and placed in a specimen retrieval bag. Multiple large stones were spilled and were retrieved after the gallbladder was placed in the bag. We irrigated the right upper quadrant with over 3 L. We then brought in a 19 round Avel drain through the lateral port and placed it EGD in the gallbladder fossa and in Morison's pouch. We then removed the remaining 5 mm ports under direct vision we removed the Laura port. We then injected some local into the fascia and closed the fascia with 5 0 Ethibond sutures. The skin incisions were closed with 4 Monocryl and Steri-St rips were applied. Band-Aids were applied over the Steri-Strips. EBL: 150 mL Specimen: Gallbladder and contents Post-operative Condition: stable Disposition: PACU
[2022-01-09] MEDS: ALBUTEROL/IPRATROPIUM 3 ML AMPUL INH (19:51)
[2022-01-09] MEDS: HYDROMORPHONE 2 MG INJ IV (20:02)
[2022-01-09] MEDS: ONDANSETRON 4 MG/2 ML INJ IV (20:03)
[2022-01-09 21:55] LABS: INR 1.3 (0.9-1.3); Prothrombin Time 15.1 SECONDS (10.1-12.7)
[2022-01-09] MEDS: HYDROCODONE/ACET 5/325 TABLET 1 TAB PO (22:29)
[2022-01-09] MEDS: PIPERACILLIN/TAZO 3.375 GM in SODIUM CHLORIDE 0.9% 100 ML IV (22:34)
[2022-01-10 04:49] VITALS: BP 101/66; PULSE 94; RESP 17; TEMP 36.1; O2SAT 96
[2022-01-10 05:23] LABS: Add Manual Diff / Slide Review NO; Basophils Absolute Auto 100 /uL (0-100); Basophils Percent Auto 0.5 % (0-2); Eosinophils Absolute Auto 0 /uL (0-450); Eosinophils Percent Auto 0.1 % (2-4); Hematocrit 36.9 % (41-53); Hemoglobin 12.7 g/dL (13.5-17.5); Lymphocytes Absolute Auto 700 /uL (1100-4500); Lymphocytes Percent Auto 5.5 % (25-40); Mean Corpuscular HGB Conc 34.3 % (30-36); Mean Corpuscular Hemoglobin 30.1 PG (26-34); Mean Corpuscular Volume 87.7 fL (80-100); Monocytes Absolute Auto 1000 /uL (0-900); Monocytes Percent Auto 7.6 % (3-14); Neutrophils Absolute Auto 11100 /uL (1500-7000); Neutrophils Percent Auto 86.3 % (50-75); Platelet Count 273 X10^3/uL (150-400); Red Blood Cell Count 4.21 X10^6/uL (4.5-5.9); Red Cell Distribution Width 14.4 % (11.6-14.8); White Blood Cell Count 12.9 X10^3/uL (4.5-11.0)
[2022-01-10 05:34] LABS: Alanine Aminotransferase 159 IU/L (<50); Albumin 3.6 g/dL (3.5-5.0); Albumin Globulin Ratio 1.1 (1.0-2.8); Alkaline Phosphatase 233 U/L (38-126); Aspartate Aminotransferase 190 IU/L (17-59); BUN Creatinine Ratio 12.1 (6-22); Bilirubin Total 1.5 mg/dL (0.2-1.3); Blood Urea Nitrogen 30 mg/dL (9-20); Calcium 8.7 mg/dL (8.4-10.2); Carbon Dioxide 30 mmol/L (22-32); Chloride 94 mmol/L (98-107); Estimated Glomerular Filt Rate 26 mL/min (>60); Globulin 3.4 g/dL (1.7-4.1); Glucose 144 mg/dL (80-110); HEMOLYSIS < 15 (0-50); Potassium 4.2 mmol/L (3.4-5.1); Sodium 135 mmol/L (137-145)
[2022-01-10] MEDS: PIPERACILLIN/TAZO 3.375 GM in SODIUM CHLORIDE 0.9% 100 ML IV ×3 (05:43→21:28)
[2022-01-10] MEDS: HYDROCODONE/ACET 5/325 TABLET 1 TAB PO (05:52)
[2022-01-10 08:00] VITALS: BP 90/57; PULSE 78; RESP 18; TEMP 36.6; O2SAT 95
[2022-01-10] MEDS: HYDROMORPHONE 0.5 MG INJ IV ×3 (10:09→20:11)
[2022-01-10] MEDS: SODIUM CHLORIDE 0.9% 1,000 ML 1000 ML IV (10:10)
[2022-01-10] MEDS: ONDANSETRON 4 MG/2 ML INJ IV ×2 (10:10→16:18)
[2022-01-10 11:05] VITALS: O2SAT 92
--- NOTE | 2022-01-10 11:19 | P.PN_ITS ---
Subjective Subjective Date Patient Seen: 01/10/22 Time Patient Seen: 11:19 Interval history: abdominal pain complaints. low urine output. Chronic incarcerated right inguinal hernia. No BM for 6 days. Exam Vital Signs (past 8 hours): - 01/10/22 04:49 01/10/22 08:00 01/10/22 11:05 Temperature 97.0 F L 97.8 F Pulse Rate 94 H 78 Respiratory Rate 17 18 Blood Pressure 101/66 90/57 L Pulse Oximetry 96 95 92 Oxygen Delivery Method Room Air Oxygen Flow Rate 0 Narrative Exam Narrative: abdomen is tendered defusely. Bladder scan confirmed low urine output. Drain is serous. No nausea. RIH is soft. Objective Labs Result Diagrams: 01/10/22 05:04 01/10/22 05:04 Labs: Laboratory Results - last 24 hr 01/09/22 01/10/22 01/10/22 21:39 05:04 05:04 WBC 12.9 H RBC 4.21 L Hgb 12.7 L Hct 36.9 L MCV 87.7 MCH 30.1 MCHC 34.3 RDW 14.4 Plt Count 273 Neut % (Auto) 86.3 H Lymph % (Auto) 5.5 L [place] % (Auto) 7.6 Eos % (Auto) 0.1 L Baso % (Auto) 0.5 Neut # (Auto) 33992 H Lymph # (Auto) 700 L [place] # (Auto) 1000 H Eos # (Auto) 0 Baso # (Auto) 100 PT 15.1 H INR 1.3 Sodium 135 L Potassium 4.2 Chloride 94 L Carbon Dioxide 30 BUN 30 H Creatinine 2.47 H Estimated GFR 26 L BUN/Creatinine Ratio 12.1 Glucose 144 H Calcium 8.7 Magnesium 2.0 Total Bilirubin 1.5 H AST 190 H ALT 159 H Alkaline Phosphatase 233 H D Total Protein 7.0 Albumin 3.6 Globulin 3.4 Albumin/Globulin Ratio 1.1 PFSH Medical History Chronic a-fib Diabetes History of asthma Hyperlipidemia Right inguinal hernia Family History Mother CVA (cerebral vascular accident) Opioid dependence Father Family history of CABG Bipolar depression Social History household members: spouse Smoking Status: Never smoker alcohol intake: current Assessment & Plan Post-op Postoperative Procedures: Procedures Operation Date: 01/09/22 16:00 Actual Procedure Side Surgeon p Laparoscopic Cholecystectomy Not Applicable Adolph Hebert MD Postoperative day: 1 Postoperative status: anemia and other (constipation, acute renal injury, hypotension with low urine output but good cognition. ) Postoperative plan narrative: continue with clear liquids, continue antibiotic and drain. Dr. Broussard has addressed Acute renal injury and hypotension. Time Spent With Patient Time with patient: 15-24 minutes Quality VTE Deep Vein Thrombosis/Pulmonary Embolism Present on Admission: No
[2022-01-10] MEDS: polyethylene glycoL 3350 17 GM POWD.PACK PO ×2 (11:23→21:36)
[2022-01-10] MEDS: OXYCODONE IR 5 MG TABLET PO ×3 (11:24→21:29)
[2022-01-10] MEDS: GABAPENTIN 300 MG CAPSULE PO ×3 (11:24→21:31)
[2022-01-10 12:00] VITALS: BP 110/65; BP 92/57; BP 97/75; PULSE 84; PULSE 88; RESP 18; TEMP 37.1; O2SAT 95
[2022-01-10] MEDS: INSULIN LISPRO 100 UNIT/ML 3ML VIAL SUBCUT (13:27)
[2022-01-10] MEDS: SODIUM CHLORIDE 0.9% 1,000 ML 100 ML IV (13:28)
--- NOTE | 2022-01-10 14:09 | P.PN_ITS ---
Subjective Subjective Interval history: The patient denies abd pain this morning, and denies n/v/d. He reports he's passing gas. He has not had a BM yet. He also reports having limited urine output since the surgery. Exam Vital Signs (past 8 hours): - 01/10/22 08:00 01/10/22 11:05 01/10/22 12:00 Temperature 97.8 F 98.8 F Pulse Rate 78 84 Pulse Rate [Orthostatic Lying] 84 Pulse Rate [Orthostatic Sitting] 88 Pulse Rate [Orthostatic Standing] 88 Respiratory Rate 18 18 Blood Pressure 90/57 L 92/57 L Blood Pressure [Orthostatic Lying] 92/57 L Blood Pressure [Orthostatic Sitting] 110/65 Blood Pressure [Orthostatic Standing] 97/75 Pulse Oximetry 95 92 95 Oxygen Delivery Method Room Air Oxygen Flow Rate 0 Const Other: Patient laying in bed upon my entering the room, comfortable and in no apparent acute distress, with at bedside Eyes Other: No scleral icterus appreciated Resp Other: Lungs clear to auscultation bilaterally Cardio Other: RRR, with normal S1 and S2 heart sounds, and no extra heart sounds or murmurs appreciated GI Other: Soft, non-distended, non-tender, bowel sounds presents, with RUQ RONNELL drain with sanguinous output, and bandages overlying laparoscopic incisions Skin Other: No grossly abnormal skin lesions noted Extrem Other: Palpable dorsalis pedis bilaterally Objective Labs Result Diagrams: 01/10/22 05:04 01/10/22 05:04 Labs: Laboratory Results - last 24 hr 01/09/22 01/10/22 01/10/22 21:39 05:04 05:04 WBC 12.9 H RBC 4.21 L Hgb 12.7 L Hct 36.9 L MCV 87.7 MCH 30.1 MCHC 34.3 RDW 14.4 Plt Count 273 Neut % (Auto) 86.3 H Lymph % (Auto) 5.5 L [place] % (Auto) 7.6 Eos % (Auto) 0.1 L Baso % (Auto) 0.5 Neut # (Auto) 70534 H Lymph # (Auto) 700 L [place] # (Auto) 1000 H Eos # (Auto) 0 Baso # (Auto) 100 PT 15.1 H INR 1.3 Sodium 135 L Potassium 4.2 Chloride 94 L Carbon Dioxide 30 BUN 30 H Creatinine 2.47 H Estimated GFR 26 L BUN/Creatinine Ratio 12.1 Glucose 144 H Calcium 8.7 Magnesium 2.0 Total Bilirubin 1.5 H AST 190 H ALT 159 H Alkaline Phosphatase 233 H D Total Protein 7.0 Albumin 3.6 Globulin 3.4 Albumin/Globulin Ratio 1.1 PFS Medical History Chronic a-fib Diabetes History of asthma Hyperlipidemia Right inguinal hernia Family History Mother CVA (cerebral vascular accident) Opioid dependence Father Family history of CABG Bipolar depression Social History household members: spouse Smoking Status: Never smoker alcohol intake: current Assessment & Plan Assessment & Plan narrative: Assessment: 1. Cholecystitis status post laparoscopic cholecystectomy 2. ANAHY, likely pre-renal, possibly ATN 3. Hypertension 4. Chronic atrial fibrillation 5. DM II 6. Fatty liver disease 7. Gout Plan: 1. Cholecystectomy on January 09. IV Zosyn on-board since January 08. LFT's will likely be slow to normalize. Leukocytosis improving. 2. Cr increased after surgery, likely due to intraoperative low BP, meaning this is possible early ATN. IV normal saline 1 liter given, along with IV NS at 100 cc/hr for 12 hrs. Holding home anti-HTN's for now. Urine output is low, but bladder scan shows no retention. Will need serial assessment. 3. Will hold home atenolol 100 mg daily, and chlorthalidone 25 mg daily, given above, to maintain hemodynamic stability. 4. Patient denies any hx of valvular pathology, and no murmurs on exam to suggest this is valvular a fib. He and his are both requesting Eliquis, and Eliquis 5 mg bid on-board. 5. Patient taking Ozempic at home, with good effect. 6. This is likely complicating LFT's normalizing. Likely occurred due to long- standing DM II. 7. Home allopurinol renally-dosed now to allopurinol 100 mg daily, given ANAHY. VTE prophylaxis: Eliquis, as above Code: Full Code I have utilized all available immediate resources to obtain, update, or verify the patient's current medications. Time Spent With Patient Critical Care time: I spent a total of [] minutes of critical care time on this patient's care today; this time is exclusive of procedural time. Quality VTE Deep Vein Thrombosis/Pulmonary Embolism Present on Admission: No MIPS - Admit I confirm the patient?s Advance Care Plan is present, Code status is documented, Surrogate decision maker is in patient?s record [If Yes, STOP here]: Yes
[2022-01-10] MEDS: SODIUM CHLORIDE 0.9% 1,000 ML 500 ML IV (16:50)
[2022-01-10 17:00] VITALS: BP 95/57; PULSE 86; RESP 18; TEMP 37.1; O2SAT 95
[2022-01-10 20:23] VITALS: BP 97/57; PULSE 87; RESP 18; TEMP 36.3; O2SAT 91
[2022-01-10] MEDS: ATORVASTATIN 20 MG TABLET 80 MG PO (21:30)
[2022-01-10] MEDS: APIXABAN 5 MG TABLET PO (21:31)
[2022-01-10] MEDS: allopurinoL 100 MG TABLET PO (21:31)
[2022-01-10] MEDS: VENLAFAXINE ER 75 MG CAP PO (22:05)
[2022-01-11] MEDS: OXYCODONE IR 5 MG TABLET PO ×4 (01:21→11:47)
[2022-01-11 01:22] VITALS: BP 108/64; PULSE 91; RESP 18; TEMP 36.8; O2SAT 95
[2022-01-11 05:00] VITALS: BP 95/55; PULSE 93; RESP 20; TEMP 36.7; O2SAT 98
[2022-01-11] MEDS: PIPERACILLIN/TAZO 3.375 GM in SODIUM CHLORIDE 0.9% 100 ML IV (05:08)
[2022-01-11 05:53] LABS: Add Manual Diff / Slide Review NO; Basophils Absolute Auto 0 /uL (0-100); Basophils Percent Auto 0.4 % (0-2); Eosinophils Absolute Auto 200 /uL (0-450); Eosinophils Percent Auto 2.1 % (2-4); Hematocrit 34.5 % (41-53); Hemoglobin 11.7 g/dL (13.5-17.5); Lymphocytes Absolute Auto 700 /uL (1100-4500); Lymphocytes Percent Auto 6.6 % (25-40); Mean Corpuscular HGB Conc 33.8 % (30-36); Mean Corpuscular Hemoglobin 29.6 PG (26-34); Mean Corpuscular Volume 87.7 fL (80-100); Monocytes Absolute Auto 700 /uL (0-900); Monocytes Percent Auto 6.5 % (3-14); Neutrophils Absolute Auto 8800 /uL (1500-7000); Neutrophils Percent Auto 84.4 % (50-75); Platelet Count 271 X10^3/uL (150-400); Red Blood Cell Count 3.93 X10^6/uL (4.5-5.9); Red Cell Distribution Width 14.6 % (11.6-14.8); White Blood Cell Count 10.5 X10^3/uL (4.5-11.0)
[2022-01-11 06:07] LABS: Alanine Aminotransferase 97 IU/L (<50); Albumin Globulin Ratio 0.9 (1.0-2.8); Alkaline Phosphatase 273 U/L (38-126); Aspartate Aminotransferase 190 IU/L (17-59); BUN Creatinine Ratio 9.3 (6-22); Blood Urea Nitrogen 46 mg/dL (9-20); Calcium 7.5 mg/dL (8.4-10.2); Carbon Dioxide 26 mmol/L (22-32); Chloride 97 mmol/L (98-107); Estimated Glomerular Filt Rate 12 mL/min (>60); Globulin 3.2 g/dL (1.7-4.1); Glucose 100 mg/dL (80-110); HEMOLYSIS < 15 (0-50); Magnesium 2.1 mg/dL (1.6-2.3); Phosphorous 6.1 mg/dL (2.3-3.7); Potassium 3.8 mmol/L (3.4-5.1); Sodium 135 mmol/L (137-145); Total Protein 6.2 g/dL (6.3-8.2)
[2022-01-11] MEDS: GABAPENTIN 300 MG CAPSULE PO (08:32)
[2022-01-11] MEDS: polyethylene glycoL 3350 17 GM POWD.PACK PO (08:33)
[2022-01-11 09:00] VITALS: BP 92/56; PULSE 92; RESP 16; TEMP 36.9; O2SAT 91
[2022-01-11 10:19] LABS: COVID19 -Nasal RAPID Negative (Negative)
--- NOTE | 2022-01-11 10:42 | PM.PNPO.1 ---
Subjective Subjective Date Patient Seen: 01/11/22 Time Patient Seen: 10:42 Interval history: Agree with transfer for renal issues. Leave drain in (can be removed in clinic 1-2 weeks). Exam Vital Signs (past 8 hours): - 01/11/22 05:00 01/11/22 09:00 Temperature 98.1 F 98.4 F Pulse Rate 93 H 92 H Respiratory Rate 20 16 Blood Pressure 95/55 L 92/56 L Pulse Oximetry 98 91 Oxygen Delivery Method Room Air Oxygen Flow Rate 0 Narrative Exam Narrative: distended, incisional tenderness. Renal failure. Liver enzymes slow to resolve (review of MRI shows no concerns for CBD stones). Objective Labs Result Diagrams: 01/11/22 05:04 01/11/22 05:04 Labs: Laboratory Results - last 24 hr 01/11/22 01/11/22 01/11/22 05:04 05:04 08:11 WBC 10.5 RBC 3.93 L Hgb 11.7 L Hct 34.5 L MCV 87.7 MCH 29.6 MCHC 33.8 RDW 14.6 Plt Count 271 Neut % (Auto) 84.4 H Lymph % (Auto) 6.6 L [place] % (Auto) 6.5 Eos % (Auto) 2.1 Baso % (Auto) 0.4 Neut # (Auto) 8800 H Lymph # (Auto) 700 L [place] # (Auto) 700 Eos # (Auto) 200 Baso # (Auto) 0 Sodium 135 L Potassium 3.8 Chloride 97 L Carbon Dioxide 26 BUN 46 H Creatinine 4.92 H Estimated GFR 12 L BUN/Creatinine Ratio 9.3 Glucose 100 Calcium 7.5 L Phosphorus 6.1 H Magnesium 2.1 Total Bilirubin 1.0 AST 190 H ALT 97 H Alkaline Phosphatase 273 H Total Protein 6.2 L Albumin 3.0 L Globulin 3.2 Albumin/Globulin Ratio 0.9 L SARS-CoV-2 (PCR) Negative PFSH Medical History Chronic a-fib Diabetes History of asthma Hyperlipidemia Right inguinal hernia Family History Mother CVA (cerebral vascular accident) Opioid dependence Father Family history of CABG Bipolar depression Social History household members: spouse Smoking Status: Never smoker alcohol intake: current Assessment & Plan Post-op Postoperative Procedures: Procedures Operation Date: 01/09/22 16:00 Actual Procedure Side Surgeon p Laparoscopic Cholecystectomy Not Applicable Adolph Hebert MD Postoperative day: 2 Postoperative status: post-op ileus and other (renal failure, likely to need dialysis) Postoperative plan narrative: Transfer to [facility] for dialysis, continue drain and antibiotics. Quality VTE Deep Vein Thrombosis/Pulmonary Embolism Present on Admission: No
--- NOTE | 2022-01-11 10:53 | PM.DS.1 ---
History of Present Illness History of Present Illness Chief complaint: Fainted- [facility] thinks gallbladder- needs US Narrative: 76-year-old man with type 2 diabetes, hypertension, gout, chronic atrial fibrillation on Coumadin who presented for about 3 days of abdominal pain and syncope today and upon further workup was found to have gallstones and acute cholecystitis.? Discharge Providers Provider Date of admission: 01/07/22 18:13 Discharge Date: 01/11/22 Primary care physician: Mitchell Caceres Consults: 01/07/22 19:27 Consult to Hospitalist Service Routine Comment: Consulting Provider: Melisa Correa Reason for consultation: As per routine Discharge provider: Andres Thomas MD Summary Hospital Course Discharge Diagnosis: 1. Acute cholecystitis 2. Acute tubular necrosis 3. Chronic atrial fibrillation 4. Hypertension 5. Type 2 diabetes 6. Fatty liver disease Operative Date/Time/Diagnoses Date of procedure: 01/09/22 Time of procedure: 19:26 Pre-op diagnosis: Acute cholecystitis Post-op diagnosis: other (Gallbladder empyema) Procedure & Clinicians Procedure: Laparoscopic cholecystectomy Same procedure as scheduled: Yes Surgeon: Adolph Hebert Abdominal MRI: 1. Distended gallbladder with wall thickening and pericholecystic fluid and gallstones.? Findings consistent with acute cholecystitis. ? 2. No intrahepatic biliary ductal dilatation.? The distal CBD is not dilated.? Other portions of the bile ducts are not well seen.? ? 3. Hepatic steatosis. Abdominal ultrasound:1. Cholelithiasis.? There is gallbladder wall thickening, pericholecystic fluid collection and sonographic Aponte sign, compatible with acute cholecystitis. ? 2.? Diffusely increased hepatic echotexture. This finding is most likely secondary to hepatic fatty infiltration although other hepatocellular disease may have a similar appearance. Recommend clinical correlation. ? 3. Hypoechoic area in the gallbladder fossa is most likely secondary to focal fat sparing. ? 4. Pancreas is suboptimally visualized. ? 5. Normal caliber of common bile duct.? Chest x-ray:Bibasilar coarsening which may represent atelectasis versus developing airspace disease such as pneumonia. Hospital Course: As noted patient was admitted for acute cholecystitis on January 07 and had laparoscopic cholecystectomy on January 09. He is on Zosyn. Postop course was complicated by acute renal injury of unclear etiology but possibly he was getting septic preop or otherwise developed transient drop in blood pressure before or during surgery. Renal failure has progressively worsened to where he is now completely anuric and appearing headed towards dialysis. He has gotten aggressively volume resuscitated with almost 7 L intake and only about 400 cc output recorded since admission. He has not had any CT contrast imaging this admission. Likely etiology of renal failure is ATN. We have arranged transfer to [facility] for urgent Nephrology consultation as patient may be needing dialysis within the next day. Currently he does not appear volume overloaded, potassium is normal, phosphorus is moderately elevated, uncorrected calcium is slightly low, and bicarbonates level is normal. Blood pressure has been slightly low to low normal although again he has received aggressive volume resuscitation, has been afebrile and does not appear overtly septic. [id number] negative on admission and again today. Mentation is good. Glucose normal on sliding scale insulin. Still has RONNELL drain. Status at Discharge Cognitive/behavioral status at discharge: oriented Functional status at discharge: independent ambulation Time Spent with Patient Time spent: Greater than 30 minutes Exam Vital Signs (past 8 hours): - 01/11/22 05:00 01/11/22 09:00 Temperature 98.1 F 98.4 F Pulse Rate 93 H 92 H Respiratory Rate 20 16 Blood Pressure 95/55 L 92/56 L Pulse Oximetry 98 91 Oxygen Delivery Method Room Air Oxygen Flow Rate 0 Narrative Exam Narrative: General: Alert, NAD Lungs: Clear Heart: Irregularly irregular Abdomen: RONNELL drain noted, soft Extremities: No edema Neurological: Normal speech and affect Objective Labs Result Diagrams: 01/11/22 05:04 01/11/22 05:04 Labs: Laboratory Results - last 24 hr 01/11/22 01/11/22 01/11/22 05:04 05:04 08:11 WBC 10.5 RBC 3.93 L Hgb 11.7 L Hct 34.5 L MCV 87.7 MCH 29.6 MCHC 33.8 RDW 14.6 Plt Count 271 Neut % (Auto) 84.4 H Lymph % (Auto) 6.6 L [place] % (Auto) 6.5 Eos % (Auto) 2.1 Baso % (Auto) 0.4 Neut # (Auto) 8800 H Lymph # (Auto) 700 L [place] # (Auto) 700 Eos # (Auto) 200 Baso # (Auto) 0 Sodium 135 L Potassium 3.8 Chloride 97 L Carbon Dioxide 26 BUN 46 H Creatinine 4.92 H Estimated GFR 12 L BUN/Creatinine Ratio 9.3 Glucose 100 Calcium 7.5 L Phosphorus 6.1 H Magnesium 2.1 Total Bilirubin 1.0 AST 190 H ALT 97 H Alkaline Phosphatase 273 H Total Protein 6.2 L Albumin 3.0 L Globulin 3.2 Albumin/Globulin Ratio 0.9 L SARS-CoV-2 (PCR) Negative [facility] Medical History Chronic a-fib Diabetes History of asthma Hyperlipidemia Right inguinal hernia Family History Mother CVA (cerebral vascular accident) Opioid dependence Father Family history of CABG Bipolar depression Social History household members: spouse Smoking Status: Never smoker alcohol intake: current Discharge Plan Discharge Plan Patient Disposition: [facility] Other facility: [facility] Discharge orders & Medications Prescriptions: No Action venlafaxine 75 mg capsule,extended release 24hr 75 mg PO DAILY 0RF atenolol-chlorthalidone 100-25 mg tablet 1 tab PO DAILY 0RF warfarin 5 mg tablet 7.5 mg PO 3XW 0RF warfarin 5 mg tablet 10 mg PO 4XW 0RF allopurinol 300 mg tablet 300 mg PO DAILY 0RF fluticasone propion-salmeterol 100-50 mcg/dose blister with device 1 inh INHALATION PRN PRN (Reason: Adequate Ventilation) 0RF metformin 500 mg tablet extended release 24 hr 1,000 mg PO DAILY 0RF Ozempic 0.25 mg or 0.5 mg(2 mg/1.5 mL) pen injector 0.5 mg SUBCUT WEEKLY 0RF rosuvastatin 40 mg tablet 40 mg PO DAILY 0RF Follow up/Referrals: Mitchell Caceres MD [Primary Care Provider] - Discharge Health Status Precautions: Martha Diet/Activity/Treatments Diet: Clear Liquid Visit Report/Discharge Packet Instructions: DI for Open Cholecystectomy, DI for Laparoscopy, Cholecystectomy -- Laparoscopic Surgery Discharge Data Primary Care Provider: Mitchell Caceres Quality VTE Deep Vein Thrombosis/Pulmonary Embolism Present on Admission: No
--- NOTE | 2022-01-11 12:00 | PC.NURSE ---
Pt is AxO4, needs 1-2 person assistance. VSS except BP is soft -98/56, pt c/o on RLQ / and pain is controlled well with his routine Oxy 5mg. Dressing changed, pt has RONNELL draining and it is draining very little serosangounious drainage. PVR-178 around 1130 and pt voided afterward and it was 120ml yellow urine. Penile area is very swollen (4+ edema). L AC IV removed. Pt recieved 1300 o'clock Oxy at 1155 for preventing pain while tranferring. Report is given to nurse at [facility]. No other changes.
--- NOTE | 2022-01-11 12:14 | CM.DPC ---
DCP Cont: Discussed patient during team rounds. The plan is to transfer patient to a higher level hospital, due to patient being in need of dialysis. Dr. Thomas had mentioned [facility]. 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 Did give copy of IMM to patient's spouse. Madie Friedman RN/[employer]
== END 2022-01-11 12:16 | disposition short-term general hospital (02) | DRG 417 ==
LOC: ED 14:44 → AC 18:15
PROVIDERS: Internal Medicine; Nurse Practitioner Family; Student in an Organized Health Care Education/Training Program; Admitting Provider Surgery; Emergency Provider Emergency Medicine; PCP Internal Medicine; Referring Provider Emergency Medicine; Visit Provider Surgery
PROC: 0FT44ZZ Resection of Gallbladder, Percutaneous Endoscopic Approach (ICD-10-PCS; CPT 47562; principal; 2022-01-09 16:00)
DX: K80.00 Calculus of gallbladder with acute cholecystitis without obstruction (principal); N17.0 Acute kidney failure with tubular necrosis; I48.20 Chronic atrial fibrillation, unspecified; D68.9 Coagulation defect, unspecified; I96 Gangrene, not elsewhere classified; E11.9 Type 2 diabetes mellitus without complications; F32.A Depression, unspecified; M10.9 Gout, unspecified; I95.9 Hypotension, unspecified; I10 Essential (primary) hypertension; E78.5 Hyperlipidemia, unspecified; Z79.01 Long term (current) use of anticoagulants; Z20.822 Contact with and (suspected) exposure to COVID-19; Z79.84 Long term (current) use of oral hypoglycemic drugs
CPT/HCPCS: 36415; 47562; 71045; 74181; 76705; 80048; 80053; 82550; 82553; 82962; 83036; 83690; 83735; 84100; 84132; 84484; 85025; 85610; 87635; 93005; 96365; 96367; 99222; 99284; 99291; C9803; J0690; J1170; J1815; J2060; J2405; J2543; J2704; J3010; J3430

== ENCOUNTER → 2022-02-25 12:35 | Outpatient (CLI) | payer MEDICARE, OTHER, SELFPAY ==
[2022-01-07 18:41] VITALS: BMI 29.9
[2022-02-25 13:05] LABS: Add Manual Diff / Slide Review NO; Basophils Absolute Auto 100 /uL (0-100); Basophils Percent Auto 0.8 % (0-2); Eosinophils Absolute Auto 700 /uL (0-450); Eosinophils Percent Auto 9.4 % (2-4); Hematocrit 30.1 % (41-53); Hemoglobin 10.3 g/dL (13.5-17.5); Lymphocytes Absolute Auto 1300 /uL (1100-4500); Mean Corpuscular HGB Conc 34.4 % (30-36); Mean Corpuscular Volume 87.4 fL (80-100); Monocytes Absolute Auto 700 /uL (0-900); Neutrophils Absolute Auto 4300 /uL (1500-7000); Neutrophils Percent Auto 61.8 % (50-75); Platelet Count 277 X10^3/uL (150-400); Red Blood Cell Count 3.44 X10^6/uL (4.5-5.9); Red Cell Distribution Width 15.1 % (11.6-14.8)
[2022-02-25 16:54] LABS: Alanine Aminotransferase 20 IU/L (<50); Albumin 4.5 g/dL (3.5-5.0); Albumin Globulin Ratio 1.4 (1.0-2.8); Alkaline Phosphatase 80 U/L (38-126); Aspartate Aminotransferase 25 IU/L (17-59); BUN Creatinine Ratio 15.6 (6-22); Bilirubin Total 0.6 mg/dL (0.2-1.3); Blood Urea Nitrogen 33 mg/dL (9-20); Calcium 10.1 mg/dL (8.4-10.2); Carbon Dioxide 26 mmol/L (22-32); Chloride 102 mmol/L (98-107); Estimated Glomerular Filt Rate 32 mL/min (>60); Globulin 3.2 g/dL (1.7-4.1); Glucose 98 mg/dL (80-110); HEMOLYSIS < 15 (0-50); Potassium 4.1 mmol/L (3.4-5.1); Sodium 142 mmol/L (137-145); Total Protein 7.7 g/dL (6.3-8.2)
== END ==
PROVIDERS: PCP Internal Medicine; Referring Provider Specialist; Visit Provider Specialist
DX: N17.9 Acute kidney failure, unspecified (principal)
CPT/HCPCS: 36415; 80053; 85025

== ENCOUNTER → 2022-03-05 11:29 | Outpatient (CLI) | payer MEDICARE, OTHER, SELFPAY ==
[2022-01-07 18:41] VITALS: BMI 29.9
[2022-03-05 21:13] LABS: Alanine Aminotransferase 17 IU/L (<50); Albumin 4.1 g/dL (3.5-5.0); Albumin Globulin Ratio 1.3 (1.0-2.8); Alkaline Phosphatase 80 U/L (38-126); Aspartate Aminotransferase 25 IU/L (17-59); BUN Creatinine Ratio 15.6 (6-22); Bilirubin Total 0.5 mg/dL (0.2-1.3); Blood Urea Nitrogen 26 mg/dL (9-20); Calcium 9.8 mg/dL (8.4-10.2); Carbon Dioxide 27 mmol/L (22-32); Chloride 104 mmol/L (98-107); Estimated Glomerular Filt Rate 42 mL/min (>60); Globulin 3.1 g/dL (1.7-4.1); Glucose 153 mg/dL (80-110); HEMOLYSIS < 15 (0-50); Potassium 3.7 mmol/L (3.4-5.1); Sodium 143 mmol/L (137-145); Total Protein 7.2 g/dL (6.3-8.2)
== END ==
PROVIDERS: PCP Internal Medicine; Visit Provider Specialist
DX: N17.9 Acute kidney failure, unspecified (principal)
CPT/HCPCS: 80053

== ENCOUNTER → 2022-10-07 10:35 | Outpatient (CLI) | payer MEDICARE, OTHER, SELFPAY ==
[2022-01-07 18:41] VITALS: BMI 29.9
[2022-10-07 11:40] LABS: Alanine Aminotransferase 29 IU/L (<50); Albumin 4.5 g/dL (3.5-5.0); Albumin Globulin Ratio 1.4 (1.0-2.8); Alkaline Phosphatase 65 U/L (38-126); Aspartate Aminotransferase 29 IU/L (17-59); Bilirubin Total 0.6 mg/dL (0.2-1.3); Blood Urea Nitrogen 29 mg/dL (9-20); Calcium 10.1 mg/dL (8.4-10.2); Carbon Dioxide 29 mmol/L (22-32); Chloride 98 mmol/L (98-107); Estimated Glomerular Filt Rate > 60 mL/min (>60); Globulin 3.3 g/dL (1.7-4.1); Glucose 120 mg/dL (80-110); HEMOLYSIS < 15 (0-50); Potassium 4.2 mmol/L (3.4-5.1); Sodium 139 mmol/L (137-145); Total Protein 7.8 g/dL (6.3-8.2)
== END ==
PROVIDERS: PCP Family Medicine; Referring Provider Family Medicine; Visit Provider Family Medicine
DX: N17.9 Acute kidney failure, unspecified (principal)
CPT/HCPCS: 36415; 80053

== ENCOUNTER → 2022-10-08 10:37 | Outpatient (CLI) | payer MEDICARE, OTHER, SELFPAY ==
[2022-01-07 18:41] VITALS: BMI 29.9
[2022-10-08 12:03] LABS: Creatinine Urine Random 122.6 mg/dL
[2022-10-08 12:04] LABS: Microalbumi Creatinin Ratio Ur 26.9 ug/mg CR (<30); Microalbumin Urine Random 3.3 mg/dL (0-1.6)
== END ==
PROVIDERS: PCP Family Medicine; Referring Provider Family Medicine; Visit Provider Family Medicine
DX: N17.9 Acute kidney failure, unspecified (principal)
CPT/HCPCS: 82043; 82570

== ENCOUNTER → 2022-10-29 08:44 | Outpatient (CLI) | payer MEDICARE, OTHER, SELFPAY ==
[2022-01-07 18:41] VITALS: BMI 29.9
[2022-10-29 19:33] LABS: Add Manual Diff / Slide Review NO; Basophils Absolute Auto 0 /uL (0-100); Basophils Percent Auto 0.3 % (0-2); Eosinophils Absolute Auto 200 /uL (0-450); Eosinophils Percent Auto 1.8 % (2-4); Hematocrit 36.6 % (41-53); Hemoglobin 12.4 g/dL (13.5-17.5); Lymphocytes Absolute Auto 1900 /uL (1100-4500); Lymphocytes Percent Auto 20.1 % (25-40); Mean Corpuscular HGB Conc 33.9 % (30-36); Mean Corpuscular Hemoglobin 29.8 PG (26-34); Mean Corpuscular Volume 87.8 fL (80-100); Monocytes Absolute Auto 600 /uL (0-900); Monocytes Percent Auto 6.3 % (3-14); Neutrophils Absolute Auto 6900 /uL (1500-7000); Neutrophils Percent Auto 71.5 % (50-75); Platelet Count 298 X10^3/uL (150-400); Red Blood Cell Count 4.17 X10^6/uL (4.5-5.9); Red Cell Distribution Width 12.9 % (11.6-14.8); White Blood Cell Count 9.7 X10^3/uL (4.5-11.0)
[2022-10-29 19:54] LABS: Vitamin D 25 Hydroxy (D3) 42.2 ng/mL (30.0-100.0)
[2022-10-29 20:04] LABS: HEMOLYSIS < 15 (0-50); Iron 105 ug/dL (49-181)
[2022-10-29 20:08] LABS: Alanine Aminotransferase 28 IU/L (<50); Albumin 4.1 g/dL (3.5-5.0); Albumin Globulin Ratio 1.3 (1.0-2.8); Alkaline Phosphatase 74 U/L (38-126); Aspartate Aminotransferase 26 IU/L (17-59); BUN Creatinine Ratio 23.2 (6-22); Bilirubin Total 0.4 mg/dL (0.2-1.3); Blood Urea Nitrogen 26 mg/dL (9-20); C-Reactive Protein Quant 3.1 mg/dL (<1.0); Calcium 9.8 mg/dL (8.4-10.2); Carbon Dioxide 30 mmol/L (22-32); Chloride 100 mmol/L (98-107); Estimated Glomerular Filt Rate > 60 mL/min (>60); Globulin 3.2 g/dL (1.7-4.1); Glucose 211 mg/dL (80-110); HEMOLYSIS < 15 (0-50); Potassium 3.8 mmol/L (3.4-5.1); Sodium 140 mmol/L (137-145); Total Protein 7.3 g/dL (6.3-8.2)
[2022-10-29 20:12] LABS: Hemoglobin A1C% w Est Avg Glu 6.6 % (4.0-6.0)
[2022-10-29 20:18] LABS: Percent Iron Saturation 36 % (20-50); Total Iron Binding Capacity 290 ug/dL (261-462); Transferrin 210 mg/dL (206-381)
[2022-10-29 20:26] LABS: Erythrocyte Sedimentation Rate 51 MM/HR (0-15)
[2022-10-29 20:56] LABS: Vitamin B12 > 1000 pg/mL (239-931)
== END ==
PROVIDERS: PCP Family Medicine; Visit Provider Family Medicine
DX: E55.9 Vitamin D deficiency, unspecified (principal); D64.9 Anemia, unspecified; E11.9 Type 2 diabetes mellitus without complications; D12.6 Benign neoplasm of colon, unspecified; N17.9 Acute kidney failure, unspecified
CPT/HCPCS: 80053; 82306; 82607; 83036; 83540; 83550; 85025; 85651; 86140

== ENCOUNTER → 2022-11-23 09:00 | Outpatient (CLI) | payer MEDICARE, OTHER, SELFPAY ==
[2022-01-07 18:41] VITALS: BMI 29.9
[2022-11-23 20:07] LABS: Alanine Aminotransferase 30 IU/L (<50); Albumin 4.4 g/dL (3.5-5.0); Albumin Globulin Ratio 1.4 (1.0-2.8); Alkaline Phosphatase 69 U/L (38-126); Aspartate Aminotransferase 30 IU/L (17-59); BUN Creatinine Ratio 22.9 (6-22); Bilirubin Total 0.5 mg/dL (0.2-1.3); Blood Urea Nitrogen 27 mg/dL (9-20); Calcium 9.9 mg/dL (8.4-10.2); Carbon Dioxide 30 mmol/L (22-32); Chloride 100 mmol/L (98-107); Estimated Glomerular Filt Rate > 60 mL/min (>60); Globulin 3.1 g/dL (1.7-4.1); Glucose 118 mg/dL (80-110); HEMOLYSIS < 15 (0-50); Potassium 4.2 mmol/L (3.4-5.1); Sodium 140 mmol/L (137-145); Total Protein 7.5 g/dL (6.3-8.2)
[2022-11-25 00:58] LABS: x Labcorp Estim. Avg Glu (eAG) 140 mg/dL (.); x Labcorp Hemoglobin A1c 6.5 % (4.8-5.6)
== END ==
PROVIDERS: PCP Family Medicine; Visit Provider Family Medicine
DX: R73.9 Hyperglycemia, unspecified (principal)
CPT/HCPCS: 80053; 83036

== ENCOUNTER → 2023-02-25 09:31 | Outpatient (CLI) | payer MEDICARE, OTHER, SELFPAY ==
[2022-01-07 18:41] VITALS: BMI 29.9
[2023-02-25 20:12] LABS: HEMOLYSIS < 15 (0-50); Iron 120 ug/dL (49-181)
[2023-02-25 20:14] LABS: Mean Corpuscular HGB Conc 34.1 % (30-36); Mean Corpuscular Hemoglobin 30.7 PG (26-34); Platelet Count 247 X10^3/uL (150-400); Red Blood Cell Count 4.55 X10^6/uL (4.5-5.9); White Blood Cell Count 7.1 X10^3/uL (4.5-11.0)
[2023-02-25 20:17] LABS: HEMOLYSIS 16 (0-50)
[2023-02-25 20:23] LABS: Percent Iron Saturation 40 % (20-50); Total Iron Binding Capacity 302 ug/dL (261-462); Transferrin 214 mg/dL (206-381)
[2023-02-25 20:27] LABS: Alanine Aminotransferase 29 IU/L (<50); Albumin 4.2 g/dL (3.5-5.0); Albumin Globulin Ratio 1.4 (1.0-2.8); Alkaline Phosphatase 60 U/L (38-126); Aspartate Aminotransferase 40 IU/L (17-59); BUN Creatinine Ratio 29.2 (6-22); Bilirubin Total 0.7 mg/dL (0.2-1.3); Blood Urea Nitrogen 33 mg/dL (9-20); Calcium 9.3 mg/dL (8.4-10.2); Carbon Dioxide 31 mmol/L (22-32); Chloride 100 mmol/L (98-107); Estimated Glomerular Filt Rate > 60 mL/min (>60); Glucose 140 mg/dL (80-110); Potassium 3.9 mmol/L (3.4-5.1); Sodium 138 mmol/L (137-145); Total Protein 7.2 g/dL (6.3-8.2)
[2023-02-25 20:40] LABS: Neutrophils Percent Auto 53.2 % (50-75)
[2023-02-25 20:41] LABS: Add Manual Diff / Slide Review NO; Basophils Absolute Auto 100 /uL (0-100); Basophils Percent Auto 0.7 % (0-2); Eosinophils Absolute Auto 200 /uL (0-450); Eosinophils Percent Auto 3.4 % (2-4); Lymphocytes Absolute Auto 2200 /uL (1100-4500); Lymphocytes Percent Auto 30.5 % (25-40); Monocytes Absolute Auto 900 /uL (0-900); Monocytes Percent Auto 12.2 % (3-14); Neutrophils Absolute Auto 3800 /uL (1500-7000)
[2023-02-25 20:42] LABS: RBC Morphology Normal Morphology
[2023-02-26 02:46] LABS: Vitamin B12 > 1000 pg/mL (239-931)
[2023-02-26 22:07] LABS: Labcorp Hemoglobin (Hb) A1c 6.8 % (4.8-5.6)
[2023-02-27 09:36] LABS: Calcium 9.7 mg/dL (8.6-10.2); Parathyroid Hormone, Intact 39 pg/mL (15-65)
== END ==
PROVIDERS: Physician Assistant Medical; PCP Family Medicine; Visit Provider Family Medicine
DX: R73.9 Hyperglycemia, unspecified (principal); M35.3 Polymyalgia rheumatica; D64.9 Anemia, unspecified; S22.080A Wedge compression fracture of T11-T12 vertebra, initial encounter for closed fracture
CPT/HCPCS: 80053; 82310; 82607; 83036; 83540; 83550; 83970; 85007; 85025

== ENCOUNTER → 2023-03-03 | Outpatient (CLI) | payer MEDICARE, OTHER, SELFPAY ==
[2022-01-07 18:41] VITALS: BMI 29.9
--- NOTE | 2023-03-03 11:55 | DI.RAD.S_ITS ---
PROCEDURE: XR DEXA AXIAL SKELETON INDICATIONS: compression fracture COMPARISON: None. FINDINGS: This blank DEXA report has been sent in error by the PACS system. The correct and complete report will be forthcoming in 1-2 days. Thank you for your patience and understanding. Dictated by: Pierre Gibbons M.D. on 03/03/2023 at 18:10 Approved by: Pierre Gibbons M.D. on 03/03/2023 at 18:11
--- NOTE | 2023-03-03 12:08 | DI.DEXA.S_ITS ---
Bone Density Report Name: NORA JANSEN Age: 77 Sex: Male Ethnicity: White Date of : 1945 Indication: screening for osteoporosis; prior fracture; Referring Provider: SUKHDEEP HILLIARD Study: Bone densitometry was performed. Exam Date: March 03, 2023 Accession number: [id number] Bone Density: Region BMD T-score Z-score Classification AP Spine(L1, L2, L3) 1.383 3.3 3.9 Normal Femoral Neck (Left) 0.785 -0.6 0.4 Normal Total Hip (Left) 1.055 0.9 1.1 Normal Femoral Neck (Right) 0.776 -0.7 0.3 Normal Total Hip (Right) 1.031 0.7 0.9 Normal Total Hip Mean 1.043 0.8 1.0 Normal World Health Organization criteria for BMD impression classify patients as: Normal (T-score at or above -1.0), Osteopenia (T-score between -1.0 and -2.5), or Osteoporosis (T-score at or below -2.5). 10-year Fracture Risk: FRAX not reported because: All T-scores for Spine Total, Hip Total, Femoral Neck at or above -1.0 Prior hip or vertebral fracture Impression: The patient has normal bone mass. The patient has risk factors, including: previous fracture. Discussion: INCREASED RISK OF FRACTURE DUE TO HISTORY OF LOW TRAUMA FRACTURE. The patient's previous fracture puts the patient at high risk of a future fracture. In untreated patients, the risk of osteoporotic fracture increases approximately two-fold for each 1.0 SD decrease in T-score. Low bone density is not the only risk factor for fracture; also consider factors such as patient's age, frailty or poor health, risk of falling, risk of injury, previous osteoporotic fracture, family history of osteoporosis, cigarette smoking, low body weight, etc. Not everyone with a low trauma fracture has osteoporosis; osteomalacia and other metabolic bone disorders should also be considered. Patients who have osteoporosis should be evaluated for specific diseases and conditions (secondary causes) that may cause or contribute to bone loss and fracture risk. National Osteoporosis Foundation (NOF) recommends pharmacologic intervention for patients with a prior low trauma hip or vertebral fracture regardless of BMD T-score. The patient should follow a healthful lifestyle (good nutrition with adequate calcium and vitamin D, and appropriate weight-bearing exercise). Follow-Up: Consider a repeat BMD and Vertebral Fracture Assessment (VFA) exam in 2 years or sooner if medically necessary, to reassess this patient's status. Reported by: ROSALIND ADKINS M.D. on 03/03/2023 12:23:00 PM.
== END ==
LOC: RAD 11:54
PROVIDERS: PCP Family Medicine; Referring Provider Physician Assistant Medical; Visit Provider Physician Assistant Medical
DX: S22.080A Wedge compression fracture of T11-T12 vertebra, initial encounter for closed fracture (principal); Z13.820 Encounter for screening for osteoporosis
CPT/HCPCS: 77080

== ENCOUNTER → 2023-12-14 10:37 | Outpatient (CLI) | payer MEDICARE, OTHER, SELFPAY ==
[2022-01-07 18:41] VITALS: BMI 29.9
[2023-12-14 12:12] LABS: Hemoglobin A1C% w Est Avg Glu 6.6 % (4.0-6.0)
[2023-12-14 12:28] LABS: Alanine Aminotransferase 36 IU/L (<50); Albumin 4.7 g/dL (3.5-5.0); Albumin Globulin Ratio 1.6 (1.0-2.8); Alkaline Phosphatase 61 U/L (38-126); Aspartate Aminotransferase 37 IU/L (17-59); BUN Creatinine Ratio 26.4 (6-22); Bilirubin Total 0.9 mg/dL (0.2-1.3); Blood Urea Nitrogen 32 mg/dL (9-20); Calcium 9.7 mg/dL (8.4-10.2); Carbon Dioxide 30 mmol/L (22-32); Chloride 104 mmol/L (98-107); Estimated Glomerular Filt Rate > 60 mL/min (>60); Globulin 2.9 g/dL (1.7-4.1); Glucose 116 mg/dL (80-110); HEMOLYSIS < 15 (0-50); Potassium 4.4 mmol/L (3.4-5.1); Sodium 140 mmol/L (137-145); Total Protein 7.6 g/dL (6.3-8.2); Uric Acid 7.6 mg/dL (3.5-8.5)
[2023-12-14 16:12] LABS: Microalbumin Urine Random 3.4 mg/dL (0-1.6)
[2023-12-14 16:20] LABS: Creatinine Urine Random 126.4 mg/dL; Microalbumi Creatinin Ratio Ur 26.8 ug/mg CR (<30)
== END ==
PROVIDERS: PCP Family Medicine; Referring Provider Family Medicine; Visit Provider Family Medicine
DX: I10 Essential (primary) hypertension (principal); E11.9 Type 2 diabetes mellitus without complications; M10.9 Gout, unspecified
CPT/HCPCS: 36415; 80053; 82043; 82570; 83036; 84550

== ENCOUNTER → 2024-03-08 13:38 | Outpatient (CLI) | payer MEDICARE, OTHER, SELFPAY ==
[2022-01-07 18:41] VITALS: BMI 29.9
--- NOTE | 2024-03-08 13:40 | DI.RAD.S_ITS ---
PROCEDURE: XR HIP W PEL IF DONE RT 2V INDICATIONS: evaluation for LBP w/o injury TECHNIQUE: 2 views of the hip were acquired. COMPARISON: None. FINDINGS: Bones: No fractures or dislocations. No suspicious bony lesions. The visualized pelvic ring appears intact. Soft tissues: No suspicious soft tissue calcifications or masses. IMPRESSION: No acute bony abnormality. Approved by: Jose Pineda M.D. on 03/08/2024 at 23:28
--- NOTE | 2024-03-08 13:40 | DI.RAD.S_ITS ---
PROCEDURE: XR LUMBAR SPINE 2-3V INDICATIONS: evaluation for LBP w/o injury TECHNIQUE: 3 views of the lumbar spine were acquired. COMPARISON: [facility] ([place]), CR, XR LUMBAR SPINE 2-3V, 02/10/2023, 14:57. FINDINGS: Bones: T12 wedge-shaped compression fracture with retrolisthesis at T12-L1, L1-2 and L2-3. Anterior listhesis L4-5, all degenerative and grade 1. Hypertrophic facet joints noted particularly in the lower lumbar spine. Disc space narrowing at the thoracolumbar junction. Calcific aortic atherosclerosis. Soft tissues: Overlying bowel gas pattern is normal. No suspicious soft tissue calcifications. IMPRESSION: Degenerative disc disease, hypertrophic arthropathy, and mild degenerative listhesis. Approved by: Jose Pineda M.D. on 03/08/2024 at 23:30
== END ==
PROVIDERS: PCP Family Medicine; Referring Provider Nurse Practitioner Family; Visit Provider Nurse Practitioner Family
DX: M51.16 Intervertebral disc disorders with radiculopathy, lumbar region (principal); M47.26 Other spondylosis with radiculopathy, lumbar region; M43.16 Spondylolisthesis, lumbar region
CPT/HCPCS: 72100; 73502

== ENCOUNTER → 2024-03-23 15:23 | Outpatient (CLI) | payer MEDICARE, OTHER, SELFPAY ==
[2022-01-07 18:41] VITALS: BMI 29.9
--- NOTE | 2024-03-23 15:25 | DI.MRI.S_ITS ---
PROCEDURE: MR LUMBAR SPINE WO CON INDICATIONS: chronic, radiating back pain TECHNIQUE: Noncontrast sagittal T1 spin echo and T2 fast echo, sagittal STIR, and T2 fast spin echo through the lumbar spine. In cases with scoliosis, additional coronal T2 fast spin echo may be performed. COMPARISON: [facility], CR, XR LUMBAR SPINE 2-3V, 03/08/2024, 13:39. FINDINGS: Image quality: This examination is limited by involuntary motion artifact. Alignment and Curvature: Mild dextroconvex scoliotic curvature is seen. Minimal retrolisthesis can be seen at T12-L1, L1-L2, and L2-L3. There is mild retrolisthesis at L3-L4. Minimal anterolisthesis is seen at L4-L5 and at L5-S1. Bone Marrow: Marrow is of normal overall signal. No acute vertebral body compression fractures. There is a remote T12 compression deformity seen, with 60-70% loss of height centrally. No posterior displacement fracture fragments can be seen. Spinal Cord: Conus medullaris terminates at the L1 level. Visualized cord demonstrates normal signal and size. Paraspinous Soft Tissues: No paravertebral masses. T12-L1: Mild loss of disc height is seen. Loss of disc signal is seen. Mild to moderate disc bulge is seen, which is slightly eccentric to the right. There is a superimposed central disc protrusion. There is at least moderate bilateral neural foraminal narrowing seen, right worse than left. Minimal central canal narrowing is seen. L1-L2: Mild loss of disc height is seen. Loss of disc signal is seen. Mild generalized disc bulge is seen. There is a superimposed central disc protrusion. Mild to moderate facet hypertrophy can be seen. Moderate bilateral neural foraminal narrowing is seen. Moderate central canal narrowing is seen. L2-L3: Moderate loss of disc height is seen. Loss of disc signal is seen. Moderate generalized disc bulge is seen. There is a superimposed central disc protrusion. Mild facet joint hypertrophy is seen. Moderate bilateral neural foraminal narrowing is seen. Mild to moderate central canal narrowing is seen. L3-L4: Mild loss of disc height is seen. Loss of disc signal is seen. Moderate generalized disc bulge is seen. There is a superimposed central disc protrusion. At least moderate facet hypertrophy is seen. Associated hypertrophy of the ligamentum flavum can be seen. There is at least moderate bilateral neural foraminal narrowing seen. Moderate to severe central canal narrowing is seen, as on series 7 image 11. L4-L5: The disc height is well-preserved. Loss of disc signal is seen at this level. Moderate generalized disc bulge is seen. There is a superimposed central disc protrusion. Moderate to prominent facet hypertrophy can be seen. There is at least moderate bilateral neural foraminal narrowing, left worse than right. Moderate to severe central canal narrowing is seen. L5-S1: Mild loss of disc height is seen. Loss of disc signal is seen. Mild generalized disc bulge is seen. Moderate facet joint hypertrophy is seen. Moderate bilateral neural foraminal narrowing is seen. Mild central canal narrowing is seen. IMPRESSION: Multiple levels of lumbar spine degenerative change can be seen, which are overall worst at the L3-L4 level. Remote T12 compression deformity. Dictated by: Lance Wu M.D. on 03/24/2024 at 9:38 Approved by: Lance Wu M.D. on 03/24/2024 at 9:43
== END ==
PROVIDERS: PCP Family Medicine; Referring Provider Family Medicine; Visit Provider Family Medicine
DX: M47.816 Spondylosis without myelopathy or radiculopathy, lumbar region (principal); M47.817 Spondylosis without myelopathy or radiculopathy, lumbosacral region; M43.8X4 Other specified deforming dorsopathies, thoracic region; M54.40 Lumbago with sciatica, unspecified side; M54.9 Dorsalgia, unspecified; G89.29 Other chronic pain
CPT/HCPCS: 72148

== ENCOUNTER → 2024-06-13 15:10 | Outpatient (CLI) | payer MEDICARE, OTHER, SELFPAY ==
[2022-01-07 18:41] VITALS: BMI 29.9
[2024-06-13 16:36] LABS: Add Manual Diff / Slide Review NO; Basophils Absolute Auto 0 /uL (0-100); Basophils Percent Auto 0.5 % (0-2); Eosinophils Absolute Auto 400 /uL (0-450); Eosinophils Percent Auto 6.6 % (2-4); Hematocrit 39.9 % (41-53); Hemoglobin 13.5 g/dL (13.5-17.5); Lymphocytes Absolute Auto 1500 /uL (1100-4500); Lymphocytes Percent Auto 22.3 % (25-40); Mean Corpuscular HGB Conc 33.7 % (30-36); Mean Corpuscular Hemoglobin 30.5 PG (26-34); Mean Corpuscular Volume 90.2 fL (80-100); Monocytes Absolute Auto 700 /uL (0-900); Monocytes Percent Auto 10.5 % (3-14); Neutrophils Absolute Auto 4100 /uL (1500-7000); Neutrophils Percent Auto 60.1 % (50-75); Platelet Count 244 X10^3/uL (150-400); Red Blood Cell Count 4.42 X10^6/uL (4.5-5.9); Red Cell Distribution Width 13.5 % (11.6-14.8); White Blood Cell Count 6.8 X10^3/uL (4.5-11.0)
[2024-06-13 17:08] LABS: Alanine Aminotransferase 37 IU/L (<50); Albumin 4.1 g/dL (3.5-5.0); Albumin Globulin Ratio 1.3 (1.0-2.8); Alkaline Phosphatase 85 U/L (38-126); Aspartate Aminotransferase 36 IU/L (17-59); BUN Creatinine Ratio 17.2 (6-22); Bilirubin Total 0.5 mg/dL (0.2-1.3); Blood Urea Nitrogen 25 mg/dL (9-20); Calcium 9.6 mg/dL (8.4-10.2); Carbon Dioxide 28 mmol/L (22-32); Chloride 100 mmol/L (98-107); Cholesterol 162 mg/dL (140-199); Estimated Glomerular Filt Rate 49 mL/min (>60); Globulin 3.1 g/dL (1.7-4.1); Glucose 127 mg/dL (80-110); HDL Cholesterol 34 mg/dL (40-60); HEMOLYSIS < 15 (0-50); Hemoglobin A1C% w Est Avg Glu 6.8 % (4.0-6.0); LDL Cholesterol Calculated 55 mg/dL (<100); Potassium 4.2 mmol/L (3.4-5.1); Sodium 136 mmol/L (137-145); Total Protein 7.2 g/dL (6.3-8.2); Triglycerides 365 mg/dL (35-150); Uric Acid 7.4 mg/dL (3.5-8.5)
== END ==
PROVIDERS: PCP Family Medicine; Referring Provider Family Medicine; Visit Provider Family Medicine
DX: I10 Essential (primary) hypertension (principal); E11.9 Type 2 diabetes mellitus without complications; M10.9 Gout, unspecified; E87.6 Hypokalemia; E78.5 Hyperlipidemia, unspecified; I48.19 Other persistent atrial fibrillation; J45.20 Mild intermittent asthma, uncomplicated
CPT/HCPCS: 36415; 80053; 80061; 83036; 84550; 85025

== ENCOUNTER → 2024-08-30 12:03 | Outpatient (CLI) | payer MEDICARE, OTHER, SELFPAY ==
[2022-01-07 18:41] VITALS: BMI 29.9
--- NOTE | 2024-08-30 12:04 | DI.ECHO.S_ITS ---
[facility] : : [id number] : : [place] : : [id number] : : Phone: [phone] Echocardiogram Report + + :Name: NORA JANSEN Study Date: 08/30/2024 Height: 71 in : :[facility] ReadingLocation: Weight: 220 lb : : Gender: Male BSA: 2.2 m2 : :: 1945 Age: 78 yrs BP: 148/100 mmHg: :Reason For Study: MITRAL VALVE REGURGITATION : :Ordering Physician: TOREY : :BRIAN Performed By: Ale Rashid : :Referring: BRIAN LEMA : + + Interpretation Summary Afib with variable rate 87-105 bpm. Normal LV size and wall thickness; normal wall motion and LV systolic function. EF is 60-65%. Severe LA enlargement; moderate RA enlargement. Mild MAC Mild aortic stenosis with peak velocity 2.6 m/sec and mean gradient 16 mm Hg. No prior echo available for comparison. Procedure: A two-dimensional transthoracic echocardiogram with color flow and Doppler was performed. The study quality was technically adequate. There is no prior echocardiogram noted for this patient. The patient had frequent PVCs during the exam. The patient was in atrial fibrillation with heart rates between 87-105 bpm during the exam. Left Ventricle: The left ventricle is normal in size. Left ventricular wall thickness is mildly increased. The ejection fraction is estimated to be 55- 60%. Diastolic function could not be accurately assessed due to atrial fibrillation. Right Ventricle: The right ventricle is normal size. The right ventricular systolic function is normal. Atria: The left atrium is severely dilated. The right atrium is moderately dilated. There is no Doppler evidence for an interatrial shunt. Mitral Valve: There is mild mitral annular calcification. The mitral valve leaflets appear mildly thickened, but open well. There is trace mitral regurgitation. Aortic Valve: The aortic valve is moderately calcified. There is mild to moderately reduced leaflet mobility. The peak aortic velocity is 2.9 m/sec. The aortic valve mean gradient is 21 mmHg. The calculated aortic valve area is 0.87 cm2. There is trace aortic regurgitation. Tricuspid Valve: The tricuspid valve leaflets are thin and pliable. There is mild tricuspid regurgitation. Pulmonary artery pressures cannot be estimated because of the lack of a measurable TR jet velocity. Pulmonic Valve: The pulmonic valve leaflets are thin and pliable; valve motion is normal. There is trace pulmonic regurgitation. Great Vessels: The aortic root is normal size. The dimensions of the ascending aorta are normal. The IVC is dilated (diameter is greater than 2.1 cm) yet it collapses greater than 50% with a sniff. This suggests a right atrial pressure of 8 mm Hg. Pericardium/ Pleura There is no pericardial effusion. There is no pleural effusion. MMode/2D Measurements & Calculations LVIDd: 4.5 cm LVOT diam: 2.1 cm LVIDs: 2.9 cm Ao root diam: 3.4 cm FS: 34.8 % asc Aorta Diam: 3.3 cm IVSd: 1.0 cm Ao Arch Diam (Prox Trans): 3.4 cm LVPWd: 1.1 cm LV qiu. diameter/BSA (cm/m^2): 2.0 LV sys. diameter/BSA (cm/m^2): 1.3 LA A2 area: 30.7 cm2 RA long axis: 6.2 cm LA A4 area: 35.5 cm2 RA area: 25.4 cm2 LA length (vol): 7.4 cm RA vol: 88.7 ml LA vol: 124.3 ml RA : 40.4 ml/m2 LA vol index: 56.6 ml/m2 IVC diam: 2.6 cm RVD1 (basal): 4.0 cm RVD2 (mid): 2.8 cm TAPSE: 2.1 cm Doppler Measurements & Calculations Ao V2 max: 291.3 cm/sec LVOT Max Rc: 74.6 cm/sec Ao V2 mean: 179.9 cm/sec LV V1 max P.2 mmHg Ao max P.5 mmHg LV V1 VTI: 15.9 cm Ao mean P.9 mmHg CARLOS(I,D): 1.1 cm2 Ao V2 VTI: 47.3 cm CARLOS(V,D): 0.87 cm2 sev ratio: 0.34 CARLOS indexed to BSA (cm^2/m^2): 0.52 MV E max rc: 135.3 cm/sec PA V2 max: 143.8 cm/sec MV A max rc: 0.76 cm/sec PA V2 mean: 91.7 cm/sec MV E/A: 178.5 PA mean P.9 mmHg Med Peak E' Rc: 9.0 cm/sec PA pr(Accel): 31.0 mmHg E/E' med: 15.0 Lat Peak E' Rc: 9.9 cm/sec E/E' lat: 13.7 E/e' average: 14.3 MV dec time: 0.21 sec SV(LVOT): 54.2 ml Electronically signed by: Sherie lopez Cowgill Physician:08/31/2024 03:48 AM
== END ==
LOC: ECHO 12:04
PROVIDERS: PCP Family Medicine
DX: I08.1 Rheumatic disorders of both mitral and tricuspid valves (principal); I48.91 Unspecified atrial fibrillation
CPT/HCPCS: 93306